=== PATIENT | female | born 1940 | race Caucasian/White ===

== ENCOUNTER 2016-11-22 20:59 | Emergency (ER) | payer MEDICARE, BC ==
[~2016-11-22] VITALS: Ht 144.8 cm; Wt 85.0 kg
[~2016-11-22 20:59] MED LIST: ACCU40TA10 PO; AMLO5TAB22 PO; CYCL-36 PO; D31000TA PO; DILA100C PO; LIDO5T TOP; LIPI40TA PO; MAGN250T13 PO; METO50TA PO; NEUR600T PO; TAB-TAB PO
[2016-11-22 21:03] VITALS: BP 184/95; PULSE 84; RESP 16; TEMP 98.8; O2SAT 95
[2016-11-22 21:58] VITALS: TEMP 100
[2016-11-22] MEDS ORDERED: ACETAMINOPHEN 325 MG TAB PO ONE (22:00)
[2016-11-22] MEDS ORDERED: SODIUM CHLORID 0.9% 500 ML INJ 500 ML IV ONE (22:00)
--- NOTE | 2016-11-22 22:03 | PD ---
HPI Chief Complaint: Headache Time Seen by Provider: 21:50 Travel History International Travel<30 days: No Contact w/Intl Traveler<30days: No Traveled to known affect area: No History of Present Illness HPI This is a 76-year-old female with history of symptomatic bradycardia with pacemaker implant, diabetes, hypertension, hyperlipidemia. She presents for evaluation of chills. Symptoms started this evening. She feels that she cannot get warm. She did not check her temperature at home. She also endorses a cough, dry, which started today as well as nasal congestion. She endorses diarrhea which started today as well. She's had approximately 5 episodes of nonbloody diarrhea throughout the day. She reports that earlier in the day she was having some lower abdominal pain which has since resolved. She denies any chest pain or shortness of breath, nausea or vomiting, flank pain, rash, stiff neck, joint swelling. She denies any dietary changes. She denies any recent antibiotic use. She has no other complaints at this time. PFSH Past Medical History Hx Anticoagulant Therapy: Yes (XARELTO) Arthritis: Yes Asthma: Yes Blood Disorders: No Anxiety: No Depression: No Heart Rhythm Problems: Yes (BRADYCARDIA PACEMAKER BIOTRONIC) Cancer: No Cardiovascular Problems: Yes (PACEMAKER) High Cholesterol: Yes Chemotherapy: No Chest Pain: No Congestive Heart Failure: No COPD: No Cerebrovascular Accident: No Coronary Artery Disease: Yes Diabetes: Yes (METFORMIN) Diminished Hearing: No Endocrine: Yes Gastrointestinal Disorders: No GERD: Yes Genitourinary: Yes Headaches: No Hypertension: Yes Immune Disorder: No Musculoskeletal: Yes (OSTEOARTHRITIS) Neurologic: Yes Psychiatric: No Reproductive: No Respiratory: No Immunizations Current: No Migraines: No Myocardial Infarction: No Seizures: Yes Sleep Apnea: No Menopausal: Yes : 4 Para: 4 Tubal Ligation: Yes Past Surgical History Abdominal Surgery: No AICD: Yes Body Medical Devices: PACEMAKER/DEFIB Cardiac Surgery: Yes (PACEMAKER) Section: Yes Ear Surgery: No Endocrine Surgery: No Eye Surgery: No Genitourinary Surgery: No Gynecologic Surgery: No Hysterectomy: No Neurologic Surgery: No Oral Surgery: No Pacemaker: Yes Thoracic Surgery: No Other Surgery: Yes (pacemaker) Family History Family Hypercholesterolemia: Yes Social History Alcohol Use: No Tobacco Use: No Substance Use: No Allergies-Medications (Allergen,Severity, Reaction): Coded Allergies: Codeine (Verified Adverse Reaction, Severe, Nausea, 1/20/17) Reported Meds & Prescriptions Reported Meds & Active Scripts Active Flexeril (Cyclobenzaprine HCl) 10 Mg Tab 5 Mg PO TID PRN Lidoderm Patch 5% (Lidocaine HCl) 1 Patch Patch 1 Patch TOP DAILY 7 Days Apply patch to the most painful area. Patch(es) may remain in place for up to 12 hours in any 24 hour period. Reported D3 (Cholecalciferol) 1,000 Unit Tab 1,000 Unit PO DAILY Magnesium 250 Mg Tab 250 Mg PO DAILY Amlodipine Besylate 5 mg (Amlodipine Besylate) 5 Mg Tab 5 Mg PO DAILY Metoprolol Tartrate 50 mg (Metoprolol Tartrate) 50 Mg Tab 50 Mg PO BID Lipitor (Atorvastatin Calcium) 40 Mg Tab 80 Mg PO HS Multivitamin (Multivitamins) 1 Tab Tab 1 Tab PO DAILY Accupril 40 mg (Quinapril HCl) 40 Mg Tab 40 Mg PO BID Dilantin Kapseals (Phenytoin Sodium) 100 Mg Cap 100 Mg PO TID Neurontin (Gabapentin) 600 Mg Tab 600 Mg PO TID Review of Systems Except as stated in HPI: all other systems reviewed are Neg Physical Exam Narrative GENERAL: Well-developed well-nourished female in no acute distress SKIN: Warm and dry. HEAD: Atraumatic. Normocephalic. EYES: Pupils equal and round. No scleral icterus. No injection or drainage. ENT: No nasal bleeding or discharge. Mucous membranes pink and moist. NECK: Trachea midline. No JVD. No lymphadenopathy. Neck Supple full range of motion. CARDIOVASCULAR: Regular rate and rhythm. No murmur appreciated. RESPIRATORY: No accessory muscle use. Clear to auscultation. Breath sounds equal bilaterally. GASTROINTESTINAL: Abdomen soft, non-tender, nondistended. Hepatic and splenic margins not palpable. No guarding. MUSCULOSKELETAL: No obvious deformities. NEUROLOGICAL: Awake and alert. No obvious cranial nerve deficits. Motor grossly within normal limits. Normal speech. Data Data Last Documented VS Vital Signs Date Time Temp Pulse Resp B/P Pulse Ox O2 Delivery O2 Flow Rate FiO2 11/22/16 23:53 98.6 80 16 174/82 96 Room Air Orders Complete Blood Count With Diff (11/22/16 21:58) Comprehensive Metabolic Panel (11/22/16 21:58) Lactic Acid Sepsis Protocol (11/22/16 21:58) Lipase (11/22/16 21:58) Urinalysis - C+S If Indicated (11/22/16 21:58) Influenzae A/B Antigen (11/22/16 21:58) Blood Culture (11/22/16 21:58) Chest, Single Ap (11/22/16 21:58) Iv Access Insert/Monitor (11/22/16 21:58) Acetaminophen (Tylenol) (11/22/16 22:00) Sodium Chlorid 0.9% 500 Ml Inj (Ns 500 M (11/22/16 22:00) Sodium Chlorid 0.9% 500 Ml Inj (Ns 500 M (11/23/16 00:00) Sodium Chlor 0.9% 1000 Ml Inj (Ns 1000 M (11/23/16 00:00) Labs Laboratory Tests Test 11/22/16 11/22/16 11/22/16 11/23/16 22:05 22:10 22:35 00:16 White Blood Count 8.2 TH/MM3 Red Blood Count 3.33 MIL/MM3 Hemoglobin 11.7 GM/DL Hematocrit 33.4 % Mean Corpuscular Volume 100.2 FL Mean Corpuscular Hemoglobin 35.1 PG Mean Corpuscular Hemoglobin 35.0 % Concent Red Cell Distribution Width 12.4 % Platelet Count 240 TH/MM3 Mean Platelet Volume 8.8 FL Neutrophils (%) (Auto) 79.5 % Lymphocytes (%) (Auto) 8.3 % Monocytes (%) (Auto) 8.2 % Eosinophils (%) (Auto) 3.5 % Basophils (%) (Auto) 0.5 % Neutrophils # (Auto) 6.5 TH/MM3 Lymphocytes # (Auto) 0.7 TH/MM3 Monocytes # (Auto) 0.7 TH/MM3 Eosinophils # (Auto) 0.3 TH/MM3 Basophils # (Auto) 0.0 TH/MM3 CBC Comment DIFF FINAL Differential Comment Sodium Level 139 MEQ/L Potassium Level 4.3 MEQ/L Chloride Level 102 MEQ/L Carbon Dioxide Level 28.2 MEQ/L Anion Gap 9 MEQ/L Blood Urea Nitrogen 14 MG/DL Creatinine 1.46 MG/DL Estimat Glomerular Filtration 35 ML/MIN Rate Random Glucose 227 MG/DL Calcium Level 8.9 MG/DL Total Bilirubin 0.2 MG/DL Aspartate Amino Transf 37 U/L (AST/SGOT) Alanine Aminotransferase 43 U/L (ALT/SGPT) Alkaline Phosphatase 153 U/L Total Protein 7.6 GM/DL Albumin 3.8 GM/DL Lipase 128 U/L Lactic Acid Level 2.3 mmol/L 1.6 mmol/L Urine Color YELLOW Urine Turbidity CLEAR Urine pH 7.5 Urine Specific [place] 1.013 Urine Protein TRACE mg/dL Urine Glucose (UA) NEG mg/dL Urine Ketones NEG mg/dL Urine Occult Blood NEG Urine Nitrite NEG Urine Bilirubin NEG Urine Urobilinogen LESS THAN 2.0 MG/DL Urine Leukocyte Esterase SMALL Urine RBC 1 /hpf Urine WBC 2 /hpf Urine Squamous Epithelial <1 /hpf Cells Microscopic Urinalysis Comment CATH-CULT NOT IND MDM Medical Decision Making Medical Screen Exam Complete: Yes Emergency Medical Condition: Yes Medical Record Reviewed: Yes Interpretation(s) CBC WBC 8.2, 79% neutrophils, hemoglobin 11.7 CMP creatinine 1.46, random glucose 227 Lactic acid 2.3 Urinalysis small leukocytes otherwise unremarkable Chest x-ray no infiltrate, mild cardiomegaly Influenza antigen negative Differential Diagnosis Influenza, pneumonia, bronchitis, sinusitis, sepsis, dehydration, gastroenteritis, UTI, diverticulitis, colitis, appendicitis, C. difficile Narrative Course This is a 76-year-old female who has been having chills for several hours. She has also had a cough throughout the day as well as watery diarrhea. She reports that earlier this afternoon she was having some lower abdominal pain but that has resolved. Denies recent antibiotic use. Physical examination is reassuring. She has a normal temperature orally, axillary temperature was 100.0 Fahrenheit. Her abdomen is soft and nontender. Her lungs sound clear. Plan is for basic lab work, chest x-ray, influenza antigen. The patient will be provided IV fluids and Tylenol. Blood cultures have been received. 0020: Upon reexamination the patient feels improved with the administration of Tylenol. Her chills have resolved and she feels normal. She has had no diarrhea during her hospital stay so stool cultures were not performed. Her previous abdominal pain has not returned and dry abdomen is soft and nontender and so CT imaging of the abdomen was not performed. Her initial lab work is reassuring. Her lactic acid was elevated at 2.3. The patient was given 1 L fluid bolus and 125 mL normal saline per hour. She has no leukocytosis. Chest x-ray reveals no pneumonia. Influenza antigen is negative. I suspect gastroenteritis, likely viral, as the etiology. The patient appears quite well and she would prefer to go home. She is encouraged to follow-up closely with her primary care physician as her symptoms may evolve over time but at this point in time I am not seeing any indication for antibiotic use or admission. She was encouraged to return for any new or worsening symptoms. Repeat lactic acid is 1.6. She is stable for discharge. Diagnosis Primary Impression: Gastroenteritis Additional Impression: Cough Additional Instructions: Stay well-hydrated and well-nourished, get plenty of rest. Take Tylenol for fever per dosing instructions on the bottle. Follow-up with primary care physician in the next few days. Return for any new or worsening symptoms. Med/Other Pt SpecificInfo: No Change to Meds Disposition: 01 DISCHARGE HOME Condition: Stable Damian Ureña Nov 22, 2016 22:03
--- NOTE | 2016-11-22 22:33 | RADRPT ---
EXAM DATE/TIME: 11/22/2016 22:11 [facility] COMPARISON: No previous studies available for comparison. INDICATIONS : Short of Breath, Cough. MEDICAL HISTORY : Hypercholesterolemia. Hypertension. Gastroesophageal reflux disease. Seizures. Coronary artery disea se. Asthma. Arthritis. Diabetes. UTI. SURGICAL HISTORY : Pacemaker. section. Tubal ligation. ENCOUNTER: Initial ACUITY: 1 day PAIN SCORE: 0/10 LOCATION: Bilateral chest FINDINGS: A single view of the chest demonstrates the lungs to be symmetrically aerated without evidence of mas s, infiltrate or effusion. Pacer leads overlie right atrium and right ventricle. Mild cardiomegaly. CONCLUSION: 1. No focal infiltrate. Pacer leads overlying right atrium and right ventricle. Mild cardiomegaly. Gus Fulton MD on November 22, 2016 at 22:31 Board Certified Radiologist. This report was verified electronically.
[2016-11-22 22:36] LABS: AUTOMATED NEUTROPHIL # 6.5 TH/MM3 (1.8-7.7); BASOPHIL % 0.5 % (0.0-2.0); EOSINOPHIL # 0.3 TH/MM3 (0-0.4); EOSINOPHIL % 3.5 % (0.0-4.0); HEMATOCRIT 33.4 % (35.0-46.0); HEMO FLAGS DIFF FINAL; LYMPH % 8.3 % (9.0-44.0); LYMPHOCYTE # 0.7 TH/MM3 (1.0-4.8); MEAN CELL VOLUME 100.2 FL (80.0-100.0); MEAN CORPUSCULAR HEMOGLOBIN 35.1 PG (27.0-34.0); MONO % 8.2 % (0.0-8.0); NEUT % 79.5 % (16.0-70.0); PLATELET COUNT 240 TH/MM3 (150-450); RED BLOOD COUNT 3.33 MIL/MM3 (4.00-5.30); RED CELL DISTRIBUTION WIDTH 12.4 % (11.6-17.2); WHITE BLOOD COUNT 8.2 TH/MM3 (4.0-11.0)
[2016-11-22 22:53] LABS: BLOOD, URINE NEG (NEG); GLUCOSE,URINE NEG (NEG); KETONE, URINE NEG (NEG); NITRITE,URINE NEG (NEG); PH, URINE 7.5 (5.0-8.5); SQUAMOUS EPITHELIAL CELL URINE <1 /hpf (0-5); URINE COLOR YELLOW (YELLW/STRAW)
[2016-11-22 22:56] LABS: COMMENT (UR) CATH-CULT NOT IND; CULTURE IF INDICATED CATH CULTURE NOT IND
[2016-11-22 22:57] LABS: ANION GAP 9 MEQ/L (5-15); AST (GOT) 37 U/L (15-37); BICARBONATE 28.2 MEQ/L (21.0-32.0); BLOOD UREA NITROGEN 14 MG/DL (7-18); CHLORIDE 102 MEQ/L (98-107); GLOMERULAR FILTRATION RATE 35 ML/MIN (>89); POTASSIUM 4.3 MEQ/L (3.5-5.1); SODIUM (NA) 139 MEQ/L (136-145)
[2016-11-22 23:00] LABS: ALKALINE PHOSPHATASE 153 U/L (45-117); ALT (GPT) 43 U/L (10-53); TOTAL BILIRUBIN ADULT 0.2 MG/DL (0.2-1.0)
[2016-11-22 23:53] VITALS: BP 174/82; PULSE 80; RESP 16; TEMP 98.6; O2SAT 96
[2016-11-23] MEDS ORDERED: SODIUM CHLOR 0.9% 1000 ML INJ 1,000 ML IV SCH
[2016-11-23] MEDS ORDERED: SODIUM CHLORID 0.9% 500 ML INJ 500 ML IV ONE
[2016-11-23 00:24] LABS: LACTIC ACID GHOST NOT REPORTABLE
[2016-11-24] MEDS ORDERED: ATOR40TA16 PO (15:37)
[2016-11-24] MEDS ORDERED: VITA10003 PO (15:37)
[2016-11-24] MEDS ORDERED: XARE20TA PO (15:37)
[2016-11-24] MEDS ORDERED: MAGN500T2 PO (15:37)
[2016-11-24] MEDS ORDERED: FISHCAP4 PO (15:37)
[2016-11-24] MEDS ORDERED: GABA300C5 PO (15:37)
[2016-11-24] MEDS ORDERED: TYLE325T PO (15:37)
[2016-11-24] MEDS ORDERED: METO50TA PO (15:37)
[2016-11-24] MEDS ORDERED: AMLO5TAB2 PO (15:37)
[2016-11-24] MEDS ORDERED: LISI-515 PO (15:37)
[2016-11-24] MEDS ORDERED: MULT-207 PO (15:37)
[2016-11-24] MEDS ORDERED: VISICAP PO (15:37)
[2016-11-24] MEDS ORDERED: METF500T PO (15:37)
[2016-11-24] MEDS ORDERED: ASPI81CH CHEW (15:37)
[2016-11-24] MEDS ORDERED: FOLI800T PO (15:37)
[2016-11-24] MEDS ORDERED: PHEN100C PO (15:37)
[2016-11-24] MEDS ORDERED: TRAM50TA PO (15:37)
[2016-11-24] MEDS ORDERED: LEVA750T PO (19:45)
[2016-11-24] MEDS ORDERED: METR-1 PO (19:45)
[2016-11-24] MEDS ORDERED: ZOFR4TAB3 SL (19:45)
== END 2016-11-23 01:29 | disposition home or self-care (01) ==
LOC: NEPB 20:59
DX: K52.9 Noninfective gastroenteritis and colitis, unspecified (principal); R51 Headache; E78.00 Pure hypercholesterolemia, unspecified; I10 Essential (primary) hypertension; E11.9 Type 2 diabetes mellitus without complications; Z95.0 Presence of cardiac pacemaker; Z79.01 Long term (current) use of anticoagulants
CPT/HCPCS: 71010; 80053; 81001; 83605; 83690; 85025; 87040; 87804; 96360; 96361; 99285; J7030; J7040

== ENCOUNTER 2016-11-24 13:33 | Inpatient (IN) | payer MEDICARE, BC ==
[~2016-11-24] VITALS: Ht 147.3 cm; Wt 85.0 kg
[2016-11-24 13:37] VITALS: BP 137/65; PULSE 75; RESP 16; TEMP 101.8; O2SAT 95
[2016-11-24] MEDS ORDERED: SODIUM CHLOR 0.9% 1000 ML INJ 1,000 ML IV SCH (13:57)
--- NOTE | 2016-11-24 13:57 | PD ---
HPI Chief Complaint: GI Complaint Time Seen by Provider: 13:51 Travel History International Travel<30 days: No Contact w/Intl Traveler<30days: No Traveled to known affect area: No History of Present Illness HPI 76-year-old female seen in the ambulance [facility], with complaints of fever, nausea, vomiting, and diarrhea. Patient was recently seen here 2 days ago with similar complaints and discharged home with diagnosis of gastroenteritis. Patient states she has gotten worse since that time. Patient states symptoms of vertigo and weakness this morning, and a fever 102. Patient denies chest pain, shortness of breath, or upper respiratory symptoms. Patient denies urinary symptoms at this time. Patient states watery diarrhea now for 1 week. Patient is allergic to codeine. PFSH Past Medical History Hx Anticoagulant Therapy: Yes (XARELTO) Arthritis: Yes Asthma: Yes Blood Disorders: No Anxiety: No Depression: No Heart Rhythm Problems: Yes (BRADYCARDIA PACEMAKER BIOTRONIC) Cancer: No Cardiovascular Problems: Yes (PACEMAKER) High Cholesterol: Yes Chemotherapy: No Chest Pain: No Congestive Heart Failure: No COPD: No Cerebrovascular Accident: No Coronary Artery Disease: Yes Diabetes: Yes (METFORMIN) Diminished Hearing: No Endocrine: Yes Gastrointestinal Disorders: No GERD: Yes Genitourinary: Yes Headaches: No Hypertension: Yes Immune Disorder: No Musculoskeletal: Yes (OSTEOARTHRITIS) Neurologic: Yes Psychiatric: No Reproductive: No Respiratory: Yes Immunizations Current: No Migraines: No Myocardial Infarction: No Seizures: Yes Sleep Apnea: No Menopausal: Yes : 4 Para: 4 Tubal Ligation: Yes Past Surgical History Abdominal Surgery: No AICD: Yes Body Medical Devices: PACEMAKER/DEFIB Cardiac Surgery: Yes (PACEMAKER) Section: Yes Ear Surgery: No Endocrine Surgery: No Eye Surgery: No Genitourinary Surgery: No Gynecologic Surgery: No Hysterectomy: No Neurologic Surgery: No Oral Surgery: No Pacemaker: Yes Thoracic Surgery: No Other Surgery: Yes (pacemaker) Family History Family Hypercholesterolemia: Yes Social History Alcohol Use: No Tobacco Use: No Substance Use: No Allergies-Medications (Allergen,Severity, Reaction): Coded Allergies: Codeine (Verified Adverse Reaction, Severe, Nausea, 11/24/16) Reported Meds & Prescriptions Reported Meds & Active Scripts Active Flexeril (Cyclobenzaprine HCl) 10 Mg Tab 5 Mg PO TID PRN Lidoderm Patch 5% (Lidocaine HCl) 1 Patch Patch 1 Patch TOP DAILY 7 Days Apply patch to the most painful area. Patch(es) may remain in place for up to 12 hours in any 24 hour period. Reported D3 (Cholecalciferol) 1,000 Unit Tab 1,000 Unit PO DAILY Magnesium 250 Mg Tab 250 Mg PO DAILY Amlodipine Besylate 5 mg (Amlodipine Besylate) 5 Mg Tab 5 Mg PO DAILY Metoprolol Tartrate 50 mg (Metoprolol Tartrate) 50 Mg Tab 50 Mg PO BID Lipitor (Atorvastatin Calcium) 40 Mg Tab 80 Mg PO HS Multivitamin (Multivitamins) 1 Tab Tab 1 Tab PO DAILY Accupril 40 mg (Quinapril HCl) 40 Mg Tab 40 Mg PO BID Dilantin Kapseals (Phenytoin Sodium) 100 Mg Cap 100 Mg PO TID Neurontin (Gabapentin) 600 Mg Tab 600 Mg PO TID Review of Systems Except as stated in HPI: all other systems reviewed are Neg General / Constitutional: Positive: Fever (see history present illness) Eyes: No: Visual changes HENT: Positive: Vertigo, Lightheadedness, No: Headaches, Sore Throat, Rhinitis , Rhinorrhea, Congestion, Nosebleed, Neck Stiffness, Neck Pain, Ear Discharge, Earache Cardiovascular: No: Chest Pain or Discomfort Respiratory: No: Cough, Shortness of Breath, Wheezing Gastrointestinal: Positive: Nausea, Vomiting, Diarrhea, Abdominal Pain (mildly diffuse.), Loss of Appetite, No: Constipation Genitourinary: Positive: Decreased Urinary Output, No: Urgency, Frequency, Dysuria Musculoskeletal: No: Pain Skin: No Rash Neurologic: No: Weakness Psychiatric: No: Depression Endocrine: No: Polydipsia Hematologic/Lymphatic: No: Easy Bruising Physical Exam Narrative GENERAL: Patient appears in no acute distress. SKIN: Warm and dry. Mild to moderate pallor. Poor turgor with tenting present. HEAD: Atraumatic. Normocephalic. EYES: Pupils equal and round. No scleral icterus. No injection or drainage. ENT: No nasal bleeding or discharge. Mucous membranes pink and somewhat dry. Pharynx is unremarkable. Airway is patent. NECK: Trachea midline. No JVD. CARDIOVASCULAR: Regular rate and rhythm. No murmurs appreciated at this time. RESPIRATORY: No accessory muscle use. Mild diffuse wheezes to auscultation. Breath sounds equal bilaterally. GASTROINTESTINAL: Abdomen soft, mildly diffusely tender throughout, nondistended. Hepatic and splenic margins not palpable. No CVA tenderness. MUSCULOSKELETAL: Extremities without clubbing, cyanosis, or edema. No obvious deformities. NEUROLOGICAL: Awake and alert. No obvious cranial nerve deficits. Motor grossly within normal limits. Five out of 5 muscle strength in the arms and legs. Normal speech. PSYCHIATRIC: Appropriate mood and affect; insight and judgment normal. Data Data Last Documented VS Vital Signs Date Time Temp Pulse Resp B/P Pulse Ox O2 Delivery O2 Flow Rate FiO2 11/24/16 13:37 101.8 75 16 137/65 95 Orders Complete Blood Count With Diff (11/24/16 13:57) Comprehensive Metabolic Panel (11/24/16 13:57) Lipase (11/24/16 13:57) Lactic Acid (11/24/16 13:57) Prothrombin Time / Inr (Pt) (11/24/16 13:57) Act Partial Throm Time (Ptt) (11/24/16 13:57) Urinalysis - C+S If Indicated (11/24/16 13:57) Iv Access Insert/Monitor (11/24/16 13:57) Ecg Monitoring (11/24/16 13:57) Oximetry (11/24/16 13:57) NPO (11/24/16 13:57) Ondansetron Inj (Zofran Inj) (11/24/16 14:00) Sodium Chlor 0.9% 1000 Ml Inj (Ns 1000 M (11/24/16 13:57) Sodium Chloride 0.9% Flush (Ns Flush) (11/24/16 14:00) Electrocardiogram (11/24/16 13:57) Influenzae A/B Antigen (11/24/16 13:57) Chest, Single Ap (11/24/16 13:57) Acetaminophen (Tylenol) (11/24/16 14:15) B-Type Natriuretic Peptide (11/24/16 14:49) Ckmb (Isoenzyme) Profile (11/24/16 14:49) Magnesium (Mg) (11/24/16 14:49) Act Partial Throm Time (Ptt) (11/24/16 14:49) Troponin I (11/24/16 14:49) Bilateral Bp Monitoring (11/24/16 14:49) Oxygen Administration (11/24/16 14:49) Sodium Chloride 0.9% Flush (Ns Flush) (11/24/16 15:00) Labs Laboratory Tests Test 11/24/16 14:35 White Blood Count 7.7 TH/MM3 Red Blood Count 3.08 MIL/MM3 Hemoglobin 10.5 GM/DL Hematocrit 31.6 % Mean Corpuscular Volume 102.5 FL Mean Corpuscular Hemoglobin 34.1 PG Mean Corpuscular Hemoglobin 33.3 % Concent Red Cell Distribution Width 12.7 % Platelet Count 187 TH/MM3 Mean Platelet Volume 8.7 FL Neutrophils (%) (Auto) 80.3 % Lymphocytes (%) (Auto) 8.0 % Monocytes (%) (Auto) 10.0 % Eosinophils (%) (Auto) 1.4 % Basophils (%) (Auto) 0.3 % Neutrophils # (Auto) 6.2 TH/MM3 Lymphocytes # (Auto) 0.6 TH/MM3 Monocytes # (Auto) 0.8 TH/MM3 Eosinophils # (Auto) 0.1 TH/MM3 Basophils # (Auto) 0.0 TH/MM3 CBC Comment DIFF FINAL Differential Comment Prothrombin Time 11.0 SEC Prothromb Time International 1.0 RATIO Ratio Activated Partial 27.9 SEC Thromboplast Time MDM Medical Decision Making Medical Screen Exam Complete: Yes Emergency Medical Condition: Yes Differential Diagnosis Nausea and vomiting. Diarrhea. Dehydration. Electrolyte imbalance. Weakness. Wheezing. Narrative Course Patient is medically stable at time of exam. Labs are ordered including CBC, CMP, lactic acid, lipase, PT PTT and INR, and urinalysis. Influenza is ordered. IV access is obtained patient is given 4 mg Zofran IV as well as 1000 mL normal saline bolus. Patient is given 650 mg Tylenol by mouth. EKG is ordered. Chest x-ray shows possible pulmonary edema. Cardiac panel is added including BNP. Patient is awaiting medical bed placement. Call was placed to Dr. José who will be seeing the patient in [facility], and the patient was discussed. Dr. José assumes care of the patient at 1515 hrs. Condition: Stable [place] Nov 24, 2016 13:56
[2016-11-24] MEDS ORDERED: ONDANSETRON HCL 4 MG/2 ML VIAL IVP ONE (14:00)
[2016-11-24] MEDS ORDERED: SODIUM CHLORIDE 0.9% FLUSH 5 ML FLUSH IVF PRN ×2 (14:00→15:00)
[2016-11-24] MEDS ORDERED: ACETAMINOPHEN 325 MG TAB PO ONE (14:15)
--- NOTE | 2016-11-24 14:40 | RADRPT ---
EXAM DATE/TIME: 11/24/2016 14:09 [facility] COMPARISON: CHEST SINGLE AP, November 22, 2016, 22:11. INDICATIONS : Cough, Short of Breath. MEDICAL HISTORY : Hypercholesterolemia. Hypertension. Gastroesophageal reflux disease. Seizures. Coronary artery diseas e. Asthma. Arthritis. Diabetes. UTI. SURGICAL HISTORY : Pacemaker. section. Tubal ligation. ENCOUNTER: Initial ACUITY: 1 week PAIN SCORE: 0/10 LOCATION: Bilateral chest FINDINGS: AP view of the chest demonstrates a normal-sized cardiac silhouette. There are perihilar interstitial changes bilaterally. No consolidation or pneumothorax is seen. There is no effusion seen. Pacing dev ice remains present. CONCLUSION: Perihilar interstitial changes could represent pulmonary edema in the appropriate clinical setting. Db Vallejo MD on November 24, 2016 at 14:38 Board Certified Radiologist. This report was verified electronically.
[2016-11-24 14:58] LABS: AUTOMATED NEUTROPHIL # 6.2 TH/MM3 (1.8-7.7); BASOPHIL % 0.3 % (0.0-2.0); EOSINOPHIL # 0.1 TH/MM3 (0-0.4); EOSINOPHIL % 1.4 % (0.0-4.0); HEMATOCRIT 31.6 % (35.0-46.0); HEMO FLAGS DIFF FINAL; LYMPHOCYTE # 0.6 TH/MM3 (1.0-4.8); MEAN CELL VOLUME 102.5 FL (80.0-100.0); MEAN CORPUSCULAR HEMOGLOBIN 34.1 PG (27.0-34.0); MEAN CORPUSCULAR HGB CONC 33.3 % (32.0-36.0); NEUT % 80.3 % (16.0-70.0); PLATELET COUNT 187 TH/MM3 (150-450); RED BLOOD COUNT 3.08 MIL/MM3 (4.00-5.30); RED CELL DISTRIBUTION WIDTH 12.7 % (11.6-17.2); WHITE BLOOD COUNT 7.7 TH/MM3 (4.0-11.0)
[2016-11-24 15:07] LABS: APTT (PATIENT) 27.9 SEC (24.3-30.1)
[2016-11-24 15:23] LABS: ALT (GPT) 47 U/L (10-53); ANION GAP 7 MEQ/L (5-15); AST (GOT) 47 U/L (15-37); BICARBONATE 24.4 MEQ/L (21.0-32.0); BLOOD UREA NITROGEN 14 MG/DL (7-18); CHLORIDE 104 MEQ/L (98-107); POTASSIUM 4.1 MEQ/L (3.5-5.1); SODIUM (NA) 135 MEQ/L (136-145)
[2016-11-24 15:24] VITALS: BP_SYST 134; BP_SYST 166; BP_DIAS 67; BP_DIAS 73; PULSE 89; RESP 24; O2SAT 95; O2SAT 97
[2016-11-24 15:26] LABS: ALKALINE PHOSPHATASE 125 U/L (45-117); GLOMERULAR FILTRATION RATE 46 ML/MIN (>89); TOTAL BILIRUBIN ADULT 0.3 MG/DL (0.2-1.0)
[2016-11-24] MEDS ORDERED: METF500T PO (15:37)
[2016-11-24] MEDS ORDERED: VISICAP PO (15:37)
[2016-11-24] MEDS ORDERED: ATOR40TA16 PO (15:37)
[2016-11-24] MEDS ORDERED: FOLI800T PO (15:37)
[2016-11-24] MEDS ORDERED: FISHCAP4 PO (15:37)
[2016-11-24] MEDS ORDERED: PHEN100C PO (15:37)
[2016-11-24] MEDS ORDERED: TYLE325T PO (15:37)
[2016-11-24] MEDS ORDERED: ASPI81CH CHEW (15:37)
[2016-11-24] MEDS ORDERED: XARE20TA PO (15:37)
[2016-11-24] MEDS ORDERED: LISI-515 PO (15:37)
[2016-11-24] MEDS ORDERED: TRAM50TA PO (15:37)
[2016-11-24] MEDS ORDERED: MAGN500T2 PO (15:37)
[2016-11-24] MEDS ORDERED: VITA10003 PO (15:37)
[2016-11-24] MEDS ORDERED: AMLO5TAB2 PO (15:37)
[2016-11-24] MEDS ORDERED: GABA300C5 PO (15:37)
[2016-11-24] MEDS ORDERED: METO50TA PO (15:37)
[2016-11-24] MEDS ORDERED: MULT-207 PO (15:37)
[2016-11-24 15:38] VITALS: BP 166/73; PULSE 75; RESP 22; TEMP 100.3; O2SAT 95
[2016-11-24 15:40] LABS: BLOOD, URINE NEG (NEG); COMMENT (UR) CULT NOT INDICATED; CULTURE IF INDICATED CULT NOT INDICATED; GLUCOSE,URINE NEG (NEG); KETONE, URINE NEG (NEG); MUCUS URINE FEW /lpf (OCC); NITRITE,URINE NEG (NEG); URINE COLOR YELLOW (YELLW/STRAW)
[2016-11-24 16:35] LABS: APTT (PATIENT) 30.5 SEC (24.3-30.1)
--- NOTE | 2016-11-24 16:35 | PD ---
Data Data Last Documented VS Vital Signs Date Time Temp Pulse Resp B/P Pulse Ox O2 Delivery O2 Flow Rate FiO2 11/24/16 15:38 100.3 75 22 166/73 95 Nasal Cannula 3 Orders Complete Blood Count With Diff (11/24/16 13:57) Comprehensive Metabolic Panel (11/24/16 13:57) Lipase (11/24/16 13:57) Lactic Acid (11/24/16 13:57) Prothrombin Time / Inr (Pt) (11/24/16 13:57) Act Partial Throm Time (Ptt) (11/24/16 13:57) Urinalysis - C+S If Indicated (11/24/16 13:57) Iv Access Insert/Monitor (11/24/16 13:57) Ecg Monitoring (11/24/16 13:57) Oximetry (11/24/16 13:57) NPO (11/24/16 13:57) Ondansetron Inj (Zofran Inj) (11/24/16 14:00) Sodium Chlor 0.9% 1000 Ml Inj (Ns 1000 M (11/24/16 13:57) Sodium Chloride 0.9% Flush (Ns Flush) (11/24/16 14:00) Electrocardiogram (11/24/16 13:57) Influenzae A/B Antigen (11/24/16 13:57) Chest, Single Ap (11/24/16 13:57) Acetaminophen (Tylenol) (11/24/16 14:15) B-Type Natriuretic Peptide (11/24/16 14:49) Ckmb (Isoenzyme) Profile (11/24/16 14:49) Magnesium (Mg) (11/24/16 14:49) Act Partial Throm Time (Ptt) (11/24/16 14:49) Troponin I (11/24/16 14:49) Bilateral Bp Monitoring (11/24/16 14:49) Oxygen Administration (11/24/16 14:49) Sodium Chloride 0.9% Flush (Ns Flush) (11/24/16 15:00) Ct Abd/Pel W Iv Contrast(Rout) (11/24/16 ) Iohexol 350 Inj (Omnipaque 350 Inj) (11/24/16 17:05) Resp Home Oxygen Walk Test (11/24/16 ) Levofloxacin (Levaquin) (11/24/16 20:00) Admit Order (Ed Use Only) (11/24/16 ) Labs Laboratory Tests Test 11/24/16 11/24/16 11/24/16 14:35 14:40 15:56 White Blood Count 7.7 TH/MM3 Red Blood Count 3.08 MIL/MM3 Hemoglobin 10.5 GM/DL Hematocrit 31.6 % Mean Corpuscular Volume 102.5 FL Mean Corpuscular Hemoglobin 34.1 PG Mean Corpuscular Hemoglobin 33.3 % Concent Red Cell Distribution Width 12.7 % Platelet Count 187 TH/MM3 Mean Platelet Volume 8.7 FL Neutrophils (%) (Auto) 80.3 % Lymphocytes (%) (Auto) 8.0 % Monocytes (%) (Auto) 10.0 % Eosinophils (%) (Auto) 1.4 % Basophils (%) (Auto) 0.3 % Neutrophils # (Auto) 6.2 TH/MM3 Lymphocytes # (Auto) 0.6 TH/MM3 Monocytes # (Auto) 0.8 TH/MM3 Eosinophils # (Auto) 0.1 TH/MM3 Basophils # (Auto) 0.0 TH/MM3 CBC Comment DIFF FINAL Differential Comment Prothrombin Time 11.0 SEC Prothromb Time International 1.0 RATIO Ratio Activated Partial 27.9 SEC 30.5 SEC Thromboplast Time Sodium Level 135 MEQ/L Potassium Level 4.1 MEQ/L Chloride Level 104 MEQ/L Carbon Dioxide Level 24.4 MEQ/L Anion Gap 7 MEQ/L Blood Urea Nitrogen 14 MG/DL Creatinine 1.14 MG/DL Estimat Glomerular Filtration 46 ML/MIN Rate Random Glucose 119 MG/DL Lactic Acid Level 1.1 mmol/L Calcium Level 8.6 MG/DL Total Bilirubin 0.3 MG/DL Aspartate Amino Transf 47 U/L (AST/SGOT) Alanine Aminotransferase 47 U/L (ALT/SGPT) Alkaline Phosphatase 125 U/L Total Protein 6.4 GM/DL Albumin 3.2 GM/DL Lipase 120 U/L Urine Color YELLOW Urine Turbidity CLEAR Urine pH 6.0 Urine Specific [place] 1.008 Urine Protein 30 mg/dL Urine Glucose (UA) NEG mg/dL Urine Ketones NEG mg/dL Urine Occult Blood NEG Urine Nitrite NEG Urine Bilirubin NEG Urine Urobilinogen LESS THAN 2.0 MG/DL Urine Leukocyte Esterase TRACE Urine WBC 5 /hpf Urine Mucus FEW /lpf Microscopic Urinalysis Comment CULT NOT INDICATED Magnesium Level 1.5 MG/DL Total Creatine Kinase 74 U/L Troponin I LESS THAN 0.02 NG/ML B-Type Natriuretic Peptide 556 PG/ML [facility] Supervised Visit with TANIKA: Yes Narrative Course Patient care assumed for Josiah Houston patient is a 76-year-old female presents with nausea as well as vomiting for the past week or so. Patient states one of her close family contacts is been sick with very similar symptoms as well. Patient saw she has had the flu but is wondering why hasn't passed it. Patient was here yesterday and had blood work which was reassuring. As as she is returned second time today and given her age we'll pursue a CAT scan of her abdomen pelvis to rule out diverticulitis as well as other possible causes of her nausea. Patient's chest x-ray does show perihilar pneumonia, CT scan does show some bibasilar pneumonia. Patient is doing better in the emergency department she states that she wants to go home. Discussed with her that at her age I would request that she does walking oximetry test prior to discharge. Mr. roca comes to evaluate her and patient had just ambulated to the bathroom and back on her home and desaturated to 88%. Patient was then discussed with Dr. Martinez for admission. She was given Levaquin by mouth as initially she wanted to be discharged. With her hypoxia she will qualify for full admit. Diagnosis Primary Impression: Pneumonia Qualified Code: J18.9 - Pneumonia of both lungs due to infectious organism, unspecified part of lung Additional Impression: Gastroenteritis Admitting Information Admitting Physician Requests: Admit Med/Other Pt SpecificInfo: Prescription(s) given Scripts Ondansetron Odt (Zofran Odt)4 Mg Tab4 Mg SL Q6HR PRN (Nausea/Vomiting) #30 TAB Ref 0 Prov:James José MD 11/24/16 Metronidazole (Flagyl)500 Mg Pig365 Mg PO BID 7 Days Ref 0 Prov:James José MD 11/24/16 Levofloxacin (Levaquin)750 Mg Qmo412 Mg PO DAILY 7 Days Ref 0 Prov:James José MD 11/24/16 Condition: Stable James José MD Nov 24, 2016 16:35
[2016-11-24 16:40] LABS: MAGNESIUM 1.5 MG/DL (1.5-2.5)
[2016-11-24 16:46] LABS: CREATINE KINASE 74 U/L (26-192)
[2016-11-24] MEDS ORDERED: IOHEXOL 350 MG/ML 10 ML VIAL (for RAD DIAG) IV ONE (17:05)
--- NOTE | 2016-11-24 17:40 | RADRPT ---
EXAM DATE/TIME: 11/24/2016 16:58 [facility] COMPARISON: No previous studies available for comparison. INDICATIONS : Abdominal pain with nausea and vomiting. IV CONTRAST: 100 cc Omnipaque 350 (iohexol) IV ORAL CONTRAST: No oral contrast ingested. RADIATION DOSE: 15.81 CTDIvol (mGy) MEDICAL HISTORY : Cardiovascular disease. Diabetic. SURGICAL HISTORY : Pacemaker. ENCOUNTER: Initial ACUITY: 1 day PAIN SCALE: 5/10 LOCATION: Bilateral abdomen. TECHNIQUE: Volumetric scanning of the abdomen and pelvis was performed. Using automated exposure control and ad justment of the mA and/or kV according to patient size, radiation dose was kept as low as reasonably achievable to obtain optimal diagnostic quality images. FINDINGS: The bowel does not appear distended. There is a hernia seen in the right lower quadrant lateral to t he rectus muscle containing a short segment of small bowel. The small bowel in this area does appear narrowed. There are diverticula seen in the sigmoid colon without inflammatory change. There is a mild hiatal hernia present. The liver, spleen, pancreas, adrenal glands and kidneys are unremarkable . There is some atherosclerotic calcification seen at the aorta. No aneurysm is present. The pelvi c structures appear grossly intact. The patient has patchy areas of increased parenchymal density seen at the posterior lung bases bilate rally being more prominent on the left. The patient has a pacing device in place. There is degenera tive change in the lumbar spine. No focal bone lesions are seen. CONCLUSION: 1. Hernia seen at the right lateral lower abdominal wall containing a short segment of small bowel. The small bowel is narrowed. However, there does not appear to be distention of other areas of the bowel. 2. Colonic diverticula. 3. Mild hiatal hernia. 4. Suspected consolidation at the lung bases being worse on the left. Db Schmidt MD on November 24, 2016 at 17:21 Board Certified Radiologist. This report was verified electronically.
[2016-11-24] MEDS ORDERED: METR-1 PO (19:45)
[2016-11-24] MEDS ORDERED: ZOFR4TAB3 SL (19:45)
[2016-11-24] MEDS ORDERED: LEVA750T PO (19:45)
[2016-11-24] MEDS ORDERED: LEVOFLOXACIN 750 MG TAB PO ONE (20:00)
--- NOTE | 2016-11-24 20:10 | HHI.HP ---
HPI [facility] Primary Care Physician Yajaira Torres M.D. Admission Diagnosis PNA, Hypoxic resp failure. Diagnoses: (1) PNA (pneumonia) Diagnosis: Principal (2) Gastroenteritis Diagnosis: Principal (3) DM (diabetes mellitus) Diagnosis: Principal (4) HTN (hypertension) Diagnosis: Principal Travel History International Travel<30 Days: No Contact w/Intl Traveler <30 Da: No Traveled to Known Affected Are: No History of Present Illness This is a 76-year-old female with a PMH of HTN, DM, CAD and Pacemaker came to the ER with complaints of nausea, vomiting and diarrhea in addition to fever. Was seen in ER on 11/22/16 for similar symptoms, diagnosed w/ Gastroenteritis and discharged home. Returns to ER today w/ ongoing nausea, vomiting and diarrhea. On arrival, BP 137/65, HR 175, O2 sat 95% on RA, Temp 101.8. WBC normal, elevated neutrophil count. Creatinine 1.14, previously 1.46 on . U/a negative. CXR w/ perihilar interstitial changes, possibly pulmonary edema. CT Abd/Pelvis w/ hernia, no distention, suspected consolidation of bilateral lung bases, worse on left. S/p Levaquin in ER. While in ER, pt w/ ambulating O2 sat 88% on RA, currently 96% on 2L NC. Review of Systems Other ROS: 14 point review of systems otherwise negative. Past Family Social History Past Medical History PMH: HTN, DM, CAD and Pacemaker Past Surgical History PAST SURGICAL HISTORY: Pacemaker/AICD, Allergies: Coded Allergies: Codeine (Verified Adverse Reaction, Severe, Nausea, 11/24/16) Family History PAST FAMILY HISTORY: Reviewed, positive for DM and CAD. Social History PAST SOCIAL HISTORY: Negative for alcohol, tobacco or drugs. Physical Exam Vital Signs Vital Signs Date Time Temp Pulse Resp B/P Pulse Ox O2 Delivery O2 Flow Rate FiO2 11/24/16 15:38 100.3 75 22 166/73 95 Nasal Cannula 3 11/24/16 15:24 89 24 134/67 97 166/73 11/24/16 15:24 95 Nasal Cannula 3 11/24/16 15:24 95 Nasal Cannula 3 11/24/16 13:37 101.8 75 16 137/65 95 Physical Exam PE: GENERAL: Pleasant elderly white female in no acute distress, appears to feel unwell. HEENT: PERRLA, EOMI. No scleral icterus or conjunctival pallor. No lid lag or facial droop. CARDIOVASCULAR: Regular rate and rhythm. No obvious murmurs to auscultation. No chest tenderness to palpation. RESPIRATORY: No obvious rhonchi. Occasional wheezing. Clear to auscultation. Breath sounds equal bilaterally. GASTROINTESTINAL: Abdomen soft, mild epigastric tenderness to palpation, nondistended. BS normal. MUSCULOSKELETAL: Extremities without clubbing, cyanosis, or edema. No obvious deformities. NEUROLOGICAL: Awake, alert and oriented x4. No focal neurologic deficits. Moving both upper and lower extremities spontaneously. Laboratory Laboratory Tests Test 11/24/16 11/24/16 11/24/16 14:35 14:40 15:56 White Blood Count 7.7 Red Blood Count 3.08 Hemoglobin 10.5 Hematocrit 31.6 Mean Corpuscular Volume 102.5 Mean Corpuscular Hemoglobin 34.1 Mean Corpuscular Hemoglobin 33.3 Concent Red Cell Distribution Width 12.7 Platelet Count 187 Mean Platelet Volume 8.7 Neutrophils (%) (Auto) 80.3 Lymphocytes (%) (Auto) 8.0 Monocytes (%) (Auto) 10.0 Eosinophils (%) (Auto) 1.4 Basophils (%) (Auto) 0.3 Neutrophils # (Auto) 6.2 Lymphocytes # (Auto) 0.6 Monocytes # (Auto) 0.8 Eosinophils # (Auto) 0.1 Basophils # (Auto) 0.0 CBC Comment DIFF FINAL Differential Comment Prothrombin Time 11.0 Prothromb Time International 1.0 Ratio Activated Partial 27.9 30.5 Thromboplast Time Sodium Level 135 Potassium Level 4.1 Chloride Level 104 Carbon Dioxide Level 24.4 Anion Gap 7 Blood Urea Nitrogen 14 Creatinine 1.14 Estimat Glomerular Filtration 46 Rate Random Glucose 119 Lactic Acid Level 1.1 Calcium Level 8.6 Total Bilirubin 0.3 Aspartate Amino Transf 47 (AST/SGOT) Alanine Aminotransferase 47 (ALT/SGPT) Alkaline Phosphatase 125 Total Protein 6.4 Albumin 3.2 Lipase 120 Urine Color YELLOW Urine Turbidity CLEAR Urine pH 6.0 Urine Specific [place] 1.008 Urine Protein 30 Urine Glucose (UA) NEG Urine Ketones NEG Urine Occult Blood NEG Urine Nitrite NEG Urine Bilirubin NEG Urine Urobilinogen LESS THAN 2.0 Urine Leukocyte Esterase TRACE Urine WBC 5 Urine Mucus FEW Microscopic Urinalysis Comment CULT NOT INDICATED Magnesium Level 1.5 Total Creatine Kinase 74 Troponin I LESS THAN 0.02 B-Type Natriuretic Peptide 556 Date/Time Procedure Status Source Growth 11/24/16 14:35 Influenza Types A,B Antigen (PRETTY) - Final Complete Nasal Washing NEGATIVE FOR FLU A AND B ANTIGEN.... Result Diagram: 11/24/16 1435 11/24/16 1435 Assessment and Plan Problem List: (1) PNA (pneumonia) ICD Code: J18.9 Status: Acute (2) Gastroenteritis ICD Code: K52.9 Status: Acute (3) HTN (hypertension) ICD Code: I10 Status: Acute (4) DM (diabetes mellitus) ICD Code: E11.9 Status: Chronic Assessment and Plan A/P: 1. PNA: cough, fever x3 days. CXR w/ perihilar changes, possibly edema. CT Abd/Pelvis w/ hernia, no abdominal distention, suspected consolidation at lung bases, left worse than right, images reviewed by me. S/p Levaquin in ER. Episode of hypoxia w/ O2 sat 88% on RA w/ ambulation. Continue w/ IV Abx, DuoNeb, Mucinex. 2. Gastroenteritis: Nausea, vomiting, diarrhea x2-[address] Abd/Pelvis as above. Protonix IV, IVF, diet as tolerated. 3. DM: Sliding scale w/ Accu-Cheks. Hold Metformin in light of renal insufficiency. 4. Renal Insufficiency: Chronic. Creatinine 1.14, previously 1.46 on . U/a negative, IVF, repeat labs in am. Hold Metformin as above. 5. HTN: BP 140-160's, resume home medications. Monitor BP. 6. DVT Prophylaxis: SCD/Teds. 7. Social work for d/c planning as needed. 8. Case discussed w/ ER physician at length. Physician Certification 2 Midnight Certification Type: Admission for Inpatient Services Order for Inpatient Services The services are ordered in accordance with Medicare regulations or non- Medicare payer requirements, as applicable. In the case of services not specified as inpatient-only, they are appropriately provided as inpatient services in accordance with the 2-midnight benchmark. Estimated LOS (days): 2 days is the estimated time the patient will need to remain in the hospital, assuming treatment plan goals are met and no additional complications. Post-Hospital Plan: Not yet determined Pamela Malone MD Nov 24, 2016 20:10
[2016-11-24 20:12] VITALS: BP 146/67; PULSE 90; RESP 17; O2SAT 96
[2016-11-24] MEDS ORDERED: SODIUM CHLOR 0.9% 1000 ML INJ 1,000 ML IV ONE (20:15)
[2016-11-24] MEDS ORDERED: MORPHINE SULFATE 4 MG/ML INJ IV PRN ×2 (20:15)
[2016-11-24] MEDS ORDERED: GLUCAGON 1 MG/ML VIAL OTHER PRN (20:15)
[2016-11-24] MEDS ORDERED: SODIUM CHLORIDE 0.9% FLUSH 5 ML FLUSH FLUSH PRN (20:15)
[2016-11-24] MEDS ORDERED: DEXTROSE 50% IN WATER 50 ML VIAL(D50) IV PUSH PRN (20:15)
[2016-11-24] MEDS ORDERED: ACETAMINOPHEN 325 MG TAB PO PRN (20:15)
[2016-11-24] MEDS ORDERED: RESP: ALBUTEROL 2.5 MG/IPRATROPIUM 0.5 MG NEB (PRN) NEB (20:15)
[2016-11-24] MEDS ORDERED: BISACODYL 10 MG SUPP PR PRN (20:15)
[2016-11-24] MEDS ORDERED: ONDANSETRON HCL 4 MG/2 ML VIAL IVP PRN (20:15)
[2016-11-24 20:45] VITALS: TEMP 99.6
[2016-11-24] MEDS: SODIUM CHLORIDE 0.9% FLUSH 5 ML FLUSH FLUSH SCH (20:52)
[2016-11-24] MEDS: INSULIN ASPART SUPPLEMENTAL SCALE SQ SCH (21:00)
[2016-11-24] MEDS: PANTOPRAZOLE SODIUM 40 MG VIAL IV PUSH SCH (21:28)
[2016-11-24] MEDS: guaiFENesin E.R. 600 MG TAB PO SCH (21:28)
[2016-11-24] MEDS: METOPROLOL TARTRATE 50 MG TAB PO SCH (21:29)
[2016-11-24] MEDS: ATORVASTATIN 40 MG TAB PO SCH (21:29)
[2016-11-24] MEDS: BUDESONIDE-FORMOTEROL 160/4.5 MCG INHALER INH SCH (21:29)
[2016-11-24] MEDS: amLODIPine BESYLATE 5 MG TAB PO SCH (21:29)
[2016-11-24 22:22] VITALS: BP 133/67; PULSE 74; RESP 20; TEMP 98.1; O2SAT 96
[2016-11-25] VITALS (8 sets, daily range): BP systolic 111–139; BP diastolic 56–68; PULSE 76–87; RESP 18–20; TEMP 98–98.7; O2SAT 94–98
[2016-11-25 05:13] LABS: AUTOMATED NEUTROPHIL # 4.4 TH/MM3 (1.8-7.7); BASOPHIL % 0.4 % (0.0-2.0); EOSINOPHIL # 0.1 TH/MM3 (0-0.4); EOSINOPHIL % 1.2 % (0.0-4.0); HEMO FLAGS DIFF FINAL; LYMPH % 19.7 % (9.0-44.0); LYMPHOCYTE # 1.3 TH/MM3 (1.0-4.8); MEAN CELL VOLUME 100.7 FL (80.0-100.0); MEAN CORPUSCULAR HEMOGLOBIN 34.3 PG (27.0-34.0); MEAN CORPUSCULAR HGB CONC 34.1 % (32.0-36.0); MONO % 11.7 % (0.0-8.0); PLATELET COUNT 167 TH/MM3 (150-450); RED BLOOD COUNT 2.88 MIL/MM3 (4.00-5.30); RED CELL DISTRIBUTION WIDTH 12.7 % (11.6-17.2); WHITE BLOOD COUNT 6.5 TH/MM3 (4.0-11.0)
[2016-11-25 05:44] LABS: ALKALINE PHOSPHATASE 108 U/L (45-117); ALT (GPT) 38 U/L (10-53); ANION GAP 11 MEQ/L (5-15); AST (GOT) 32 U/L (15-37); BICARBONATE 23.4 MEQ/L (21.0-32.0); BLOOD UREA NITROGEN 14 MG/DL (7-18); CHLORIDE 105 MEQ/L (98-107); GLOMERULAR FILTRATION RATE 40 ML/MIN (>89); POTASSIUM 3.8 MEQ/L (3.5-5.1); SODIUM (NA) 139 MEQ/L (136-145); TOTAL BILIRUBIN ADULT 0.3 MG/DL (0.2-1.0)
[2016-11-25] MEDS: INSULIN ASPART SUPPLEMENTAL SCALE SQ SCH ×4 (06:30→21:00)
--- NOTE | 2016-11-25 07:38 | HHI.PR ---
Subjective Remarks Denies chest pain. Says she had stomach discomfort in the morning. N n/v/d/c. Says she did have diarrhea 3 days ago and she was not able to eat much SOB is improving .Says she feels very weak and is not sure iof she can get out of bed. Says she doesn't have O2 at home. Objective Vitals Vital Signs Date Time Temp Pulse Resp B/P Pulse Ox O2 Delivery O2 Flow Rate FiO2 11/25/16 05:11 98.0 76 20 139/68 96 11/25/16 01:07 98.1 76 20 111/60 97 11/24/16 22:22 98.1 74 20 133/67 96 11/24/16 20:45 99.6 11/24/16 20:12 90 17 146/67 96 Nasal Cannula 2 11/24/16 15:38 100.3 75 22 166/73 95 Nasal Cannula 3 11/24/16 15:24 89 24 134/67 97 166/73 11/24/16 15:24 95 Nasal Cannula 3 11/24/16 15:24 95 Nasal Cannula 3 11/24/16 13:37 101.8 75 16 137/65 95 I/O 11/24/16 11/24/16 11/24/16 11/25/16 11/25/16 11/25/16 07:00 15:00 23:00 07:00 15:00 23:00 Intake Total 472 ml Balance 472 ml Intake IV Total 472 ml Result Diagram: 11/25/16 0440 11/25/16 0440 Imaging Last Impressions Chest X-Ray 11/24/16 1357 Signed Impressions: Service Date/Time: Thursday, November 24, 2016 14:09 - CONCLUSION: Perihilar interstitial changes could represent pulmonary edema in the appropriate clinical setting. Db Vallejo MD Abdomen/Pelvis CT 11/24/16 0000 Signed Impressions: Service Date/Time: Thursday, November 24, 2016 16:58 - CONCLUSION: 1. Hernia seen at the right lateral lower abdominal wall containing a short segment of small bowel. The small bowel is narrowed. However, there does not appear to be distention of other areas of the bowel. 2. Colonic diverticula. 3. Mild hiatal hernia. 4. Suspected consolidation at the lung bases being worse on the left. Db Schmidt MD Objective Remarks GENERAL: Pleasant elderly white female in no acute distress, appears to feel unwell. HEENT: PERRLA, EOMI. No scleral icterus or conjunctival pallor. No lid lag or facial droop. CARDIOVASCULAR: Regular rate and rhythm. No obvious murmurs to auscultation. No chest tenderness to palpation. RESPIRATORY: No obvious rhonchi. Occasional wheezing. Clear to auscultation. Breath sounds equal bilaterally. GASTROINTESTINAL: Abdomen soft, mild epigastric tenderness to palpation, nondistended. BS normal. MUSCULOSKELETAL: Extremities without clubbing, cyanosis, or edema. No obvious deformities. NEUROLOGICAL: Awake, alert and oriented x4. No focal neurologic deficits. Moving both upper and lower extremities spontaneously. A/P Problem List: (1) PNA (pneumonia) ICD Code: J18.9 Status: Acute (2) Gastroenteritis ICD Code: K52.9 Status: Acute (3) HTN (hypertension) ICD Code: I10 Status: Acute (4) DM (diabetes mellitus) ICD Code: E11.9 Status: Chronic Assessment and Plan PNA: cough, fever x3 days [employer]. Acute respiratory failure requiring O2. Episode of hypoxia w/ O2 sat 88% on RA w / ambulation. CXR with perihilar changes, possibly edema. CT Abd/Pelvis w/ hernia, no abdominal distention, suspected consolidation at lung bases, left worse than right, images reviewed by me. Continue w/ IV Abx levaquin, DuoNeb, Mucinex. Gastroenteritis: Nausea, vomiting, diarrhea x2-[address] Abd/Pelvis as above. Protonix IV, IVF, diet as tolerated. DM2, uncontrolled A1c 7/2 (12/19). Sliding scale w/ Accu-Cheks. Hold Metformin in light of renal insufficiency. Renal Insufficiency: Chronic. Creatinine 1.14, previously 1.46 on 11/22/16. U/ a negative, IVF, repeat labs in am. Hold Metformin as above. HTN: BP 140-160's, resume home medications. Monitor BP. DVT Prophylaxis: SCD/Teds. Social work for d/c planning as needed. Discussed with the patient, nurse Glenda Wagoner MD Nov 25, 2016 07:38
[2016-11-25] MEDS: RESP: ALBUTEROL 2.5 MG/IPRATROPIUM 0.5 MG NEB (SCH) NEB ×4 (08:00→20:54)
[2016-11-25] MEDS: RIVAROXABAN 20 MG TAB PO SCH (08:06)
[2016-11-25] MEDS: PHENYTOIN SODIUM 100 MG CAP PO SCH ×3 (08:07→18:18)
[2016-11-25] MEDS: METOPROLOL TARTRATE 50 MG TAB PO SCH ×2 (08:07→21:15)
[2016-11-25] MEDS: ASPIRIN 81 MG CHEW TAB CHEW SCH (08:07)
[2016-11-25] MEDS: MULTIVITAMIN TAB PO SCH (08:07)
[2016-11-25] MEDS: guaiFENesin E.R. 600 MG TAB PO SCH ×2 (08:07→21:16)
[2016-11-25] MEDS: GABAPENTIN 300 MG CAP PO SCH ×3 (08:07→18:18)
[2016-11-25] MEDS: amLODIPine BESYLATE 5 MG TAB PO SCH ×2 (08:07→21:16)
[2016-11-25] MEDS: BUDESONIDE-FORMOTEROL 160/4.5 MCG INHALER INH SCH ×2 (08:08→21:14)
[2016-11-25] MEDS: SODIUM CHLORIDE 0.9% FLUSH 5 ML FLUSH FLUSH SCH ×2 (08:09→21:14)
[2016-11-25] MEDS: PANTOPRAZOLE SODIUM 40 MG VIAL IV PUSH SCH ×2 (08:09→21:15)
[2016-11-25 12:32] LABS: FERRITIN 134 NG/ML (8-252); TRANSFERRIN IRON PROFILE 170 MG/DL (200-360)
--- NOTE | 2016-11-25 17:06 | EKG ---
Date Performed: 11/24/2016 Time Performed: 14:17:19 PTAGE: 76 years EKG: ELECTRONIC ATRIAL PACEMAKER ELECTRONIC VENTRICULAR PACEMAKER ABNORMAL RHYTHM ECG INTERPRETA TION BASED ON A DEFAULT AGE OF 40 YEARS Compared to prior tracing no significant change PREVIOUS TRACING : 12/20/2015 02.59 DOCTOR: Godfrey Calix Interpretating Date/Time 11/25/2016 17:03:34
[2016-11-25] MEDS: ATORVASTATIN 40 MG TAB PO SCH (21:16)
[2016-11-26 00:46] VITALS: BP 112/56; PULSE 64; RESP 18; TEMP 98; O2SAT 97
[2016-11-26 04:08] VITALS: BP 134/74; PULSE 67; RESP 18; TEMP 98; O2SAT 97
[2016-11-26] MEDS: INSULIN ASPART SUPPLEMENTAL SCALE SQ SCH ×2 (06:41→11:00)
[2016-11-26 07:26] VITALS: BP 146/64; PULSE 81; RESP 18; TEMP 98; O2SAT 96
[2016-11-26 07:35] LABS: AUTOMATED NEUTROPHIL # 4.3 TH/MM3 (1.8-7.7); BASOPHIL % 0.3 % (0.0-2.0); EOSINOPHIL # 0.1 TH/MM3 (0-0.4); EOSINOPHIL % 2.2 % (0.0-4.0); HEMATOCRIT 29.4 % (35.0-46.0); HEMO FLAGS DIFF FINAL; LYMPH % 19.4 % (9.0-44.0); LYMPHOCYTE # 1.2 TH/MM3 (1.0-4.8); MEAN CELL VOLUME 100.8 FL (80.0-100.0); MEAN CORPUSCULAR HEMOGLOBIN 34.3 PG (27.0-34.0); MONO % 11.2 % (0.0-8.0); NEUT % 66.9 % (16.0-70.0); PLATELET COUNT 188 TH/MM3 (150-450); RED BLOOD COUNT 2.91 MIL/MM3 (4.00-5.30); RED CELL DISTRIBUTION WIDTH 12.8 % (11.6-17.2); WHITE BLOOD COUNT 6.4 TH/MM3 (4.0-11.0)
[2016-11-26 08:00] VITALS: PULSE 67; PULSE 79
[2016-11-26 08:05] LABS: BICARBONATE 23.6 MEQ/L (21.0-32.0); MAGNESIUM 1.7 MG/DL (1.5-2.5); POTASSIUM 4.2 MEQ/L (3.5-5.1)
[2016-11-26] MEDS: BUDESONIDE-FORMOTEROL 160/4.5 MCG INHALER INH SCH (08:30)
[2016-11-26] MEDS: SODIUM CHLORIDE 0.9% FLUSH 5 ML FLUSH FLUSH SCH (08:30)
[2016-11-26] MEDS: PANTOPRAZOLE SODIUM 40 MG VIAL IV PUSH SCH (08:30)
[2016-11-26] MEDS: ASPIRIN 81 MG CHEW TAB CHEW SCH (08:31)
[2016-11-26] MEDS: METOPROLOL TARTRATE 50 MG TAB PO SCH (08:31)
[2016-11-26] MEDS: guaiFENesin E.R. 600 MG TAB PO SCH (08:31)
[2016-11-26] MEDS: RIVAROXABAN 20 MG TAB PO SCH (08:32)
[2016-11-26] MEDS: GABAPENTIN 300 MG CAP PO SCH (08:32)
[2016-11-26] MEDS: PHENYTOIN SODIUM 100 MG CAP PO SCH (08:32)
[2016-11-26] MEDS: amLODIPine BESYLATE 5 MG TAB PO SCH (08:32)
[2016-11-26] MEDS: MULTIVITAMIN TAB PO SCH (08:36)
[2016-11-26] MEDS ORDERED: GETGO ROLLING W1 MI1 (09:21)
--- NOTE | 2016-11-26 09:22 | HHI.FF ---
Face to Face Verification Diagnosis: (1) PNA (pneumonia) (2) Gastroenteritis (3) Cough (4) HTN (hypertension) (5) GERD (gastroesophageal reflux disease) (6) DM (diabetes mellitus) (7) Hyperlipidemia (8) Paroxysmal a-fib (9) Chronic back pain (10) Valvular heart disease (11) Pacemaker (12) Obesity Physical Therapy Order: Evaluate and Treat, Improve ambulation, Strength and gait training Home Health Nursing Order: Medical education Signs/symptoms of disease process Nursing assessment with vital signs I have seen patient Briseyda Yarbrough on 11/26/16. My clinical findings support the need for the requested home health care services because: Ltd mobility - disease progression Patient has SOB Deconditioned w/ increased weakness Limited ability to care for self I certify that my clinical findings support that this patient is homebound because: Unsteady gait/balance Unsafe to leave home unassisted Unable to use public transportation Cielo Villanueva PA-C Nov 26, 2016 09:22 Glenda Wagoner MD Nov 26, 2016 12:53
[2016-11-26] MEDS ORDERED: PNEUMOCOCCAL POLYVALENT INJ 25 MCG/0.5 ML SYR IM ONE (10:00)
[2016-11-26] MEDS: RESP: ALBUTEROL 2.5 MG/IPRATROPIUM 0.5 MG NEB (SCH) NEB ×2 (10:08→11:16)
[2016-11-26 10:10] VITALS: O2SAT 98
--- NOTE | 2016-11-26 10:27 | HHI.PR ---
Subjective Remarks Follow up for pneumonia. The patient is seen sitting upright in bedside chair. She feels much better today. She states her breathing has improved, denies any shortness of breath, has an occasional cough. Her O2 sat has been stable on room air. No further nausea/vomiting, has been tolerating her meals. She is looking forward to going home. PT recommend HHC and walker, the patient does not have a walker at home. Objective Vitals Vital Signs Date Time Temp Pulse Resp B/P Pulse Ox O2 Delivery O2 Flow Rate FiO2 11/26/16 10:10 98 21 11/26/16 07:26 98.0 81 18 146/64 96 11/26/16 04:08 98.0 67 18 134/74 97 11/26/16 00:46 98.0 64 18 112/56 97 11/25/16 21:04 79 11/25/16 20:54 95 21 11/25/16 19:45 98.7 87 18 118/58 98 11/25/16 11:35 98.7 76 18 115/56 94 11/25/16 10:23 76 I/O 11/25/16 11/25/16 11/25/16 11/26/16 11/26/16 11/26/16 07:00 15:00 23:00 07:00 15:00 23:00 Intake Total 240 ml Balance 240 ml Intake Oral 240 ml # Voids 2 Result Diagram: 11/26/16 0626 11/26/16 0626 Imaging Last Impressions Chest X-Ray 11/24/16 1357 Signed Impressions: Service Date/Time: Thursday, November 24, 2016 14:09 - CONCLUSION: Perihilar interstitial changes could represent pulmonary edema in the appropriate clinical setting. Db Vallejo MD Abdomen/Pelvis CT 11/24/16 0000 Signed Impressions: Service Date/Time: Thursday, November 24, 2016 16:58 - CONCLUSION: 1. Hernia seen at the right lateral lower abdominal wall containing a short segment of small bowel. The small bowel is narrowed. However, there does not appear to be distention of other areas of the bowel. 2. Colonic diverticula. 3. Mild hiatal hernia. 4. Suspected consolidation at the lung bases being worse on the left. Db Schmidt MD Objective Remarks GENERAL: Well-nourished, well-developed elderly female patient in NAD. SKIN: Warm and dry. No rash. HEAD: Normocephalic. Atraumatic. NECK: Supple. Trachea midline. CARDIOVASCULAR: Regular rate and rhythm. S1, S2 noted. No murmur appreciated. RESPIRATORY: No accessory muscle use. Clear to auscultation. Breath sounds equal bilaterally. GASTROINTESTINAL: Abdomen soft, non-tender, nondistended. Normoactive bowel sounds x4. MUSCULOSKELETAL: No obvious deformities. Extremities without clubbing, cyanosis , or edema. NEUROLOGICAL: Awake and alert. No obvious cranial nerve deficits. Motor grossly within normal limits. Normal speech. PSYCHIATRIC: Appropriate mood and affect; insight and judgment normal. Medications and IVs Current Medications Medications (Trade) Dose Ordered Sig/Marily Route Start Time Stop Time Status Last Admin (D50w (Vial) Inj) 25 ml UNSCH PRN IV PUSH 11/24/16 20:15 (Glucagon Inj) 1 mg UNSCH PRN OTHER 11/24/16 20:15 (Symbicort 160-4.5 Inh) 2 puff Q12HR INH 11/24/16 21:00 11/26/16 08:30 (Mucinex Er) 600 mg BID PO 11/24/16 21:00 11/26/16 08:31 (Protonix Inj) 40 mg Q12H IV PUSH 11/24/16 21:00 11/26/16 08:30 (NS Flush) 2 ml UNSCH PRN FLUSH 11/24/16 20:15 (NS Flush) 2 ml BID FLUSH 11/24/16 21:00 11/26/16 08:30 (Zofran Inj) 4 mg Q6H PRN IVP 11/24/16 20:15 (Dulcolax Supp) 10 mg DAILY PRN MI 11/24/16 20:15 (Tylenol) 650 mg Q6H PRN PO 11/24/16 20:15 (Morphine Inj) 1 mg Q3H PRN IV 11/24/16 20:15 (Morphine Inj) 2 mg Q3H PRN IV 11/24/16 20:15 (Norvasc) 5 mg BID PO 11/24/16 21:00 11/26/16 08:32 (Aspirin Chew) 81 mg DAILY CHEW 11/25/16 09:00 11/26/16 08:31 (Lipitor) 40 mg HS PO 11/24/16 21:00 11/25/16 21:16 (Neurontin) 300 mg TID PO 11/25/16 09:00 11/26/16 08:32 (Lopressor) 50 mg BID PO 11/24/16 21:00 11/26/16 08:31 (Theragran) 1 tab DAILY PO 11/25/16 09:00 11/26/16 08:36 (Dilantin) 100 mg TID PO 11/25/16 09:00 11/26/16 08:32 (Xarelto) 20 mg DAILY PO 11/25/16 09:00 11/26/16 08:32 Urinary Catheter: No Vascular Central Line Catheter: No A/P Problem List: (1) PNA (pneumonia) ICD Code: J18.9 Status: Acute (2) Gastroenteritis ICD Code: K52.9 Status: Acute (3) HTN (hypertension) ICD Code: I10 Status: Acute (4) DM (diabetes mellitus) ICD Code: E11.9 Status: Chronic Assessment and Plan 76-year-old female with: Community Acquired PNA: cough, fever x3 days. Acute respiratory failure requiring O2: Episode of hypoxia w/ O2 sat 88% on RA w / ambulation. CXR images reviewed by me, with perihilar changes, possibly edema. Continue w/ IV Abx levaquin, DuoNeb, Mucinex. Checked home O2 walk test, patient does not required O2 at discharge, has been stable on room air. Overall much improved. Gastroenteritis: Nausea, vomiting, diarrhea x2-[address] Abd/Pelvis w/ hernia , no abdominal distention, suspected consolidation at lung bases, left worse than right, images reviewed by me. Protonix IV, IVF, diet as tolerated. DM2, uncontrolled A1c 7/2 (12/19). Sliding scale w/ Accu-Cheks. Hold Metformin in light of renal insufficiency. Renal Insufficiency: Chronic. Creatinine 1.14, previously 1.46 on 11/22/16. U/ a negative, IVF, repeat labs in am. Hold Metformin as above. HTN: BP 140-160's, resume home medications. Monitor BP. Generalized Weakness: likely multifactorial secondary to advanced age, with acute infection as above. Consult PT, recommends HHC and walker, case management assisting. DVT Prophylaxis: SCD/Teds. Written by Cielo Villanueva, acting as scribe for Dr. Wagoner on 11/26/16 at 09:15. The documentation accurately reflects the work performed [id number] by me Dr. Wagoner on 11/26/16 at 09:15. Cielo Villanueva PA-C Nov 26, 2016 10:27 Glenda Wagoner MD Nov 26, 2016 12:52
[2016-11-26] MEDS ORDERED: WALKER WHEELS/F1 MIS (10:31)
--- NOTE | 2016-11-26 12:53 | HHI.DCPOC ---
Discharge Care Plan Goals to Promote Your Health * To prevent worsening of your condition and complications * To maintain your health at the optimal level Directions to Meet Your Goals Take your medications as prescribed Follow your dietary instruction Follow activity as directed Keep your appointments as scheduled Take your immunizations and boosters as scheduled If your symptoms worsen call your PCP, if no PCP go to Urgent Care Center or Emergency Room Smoking is Dangerous to Your Health. Avoid second hand smoke Call the 24-hour hour crisis hotline for domestic abuse at Glenda Wagoner MD Nov 26, 2016 12:53
== END 2016-11-26 13:08 | disposition home health service (06) | DRG 193 ==
LOC: NEPA 13:33 → NEDA 20:06 → NEPHCDU 22:06
PROVIDERS: ADMIT Hospitalist; ATTEND Hospitalist
DX: J18.9 Pneumonia, unspecified organism (principal); J96.01 Acute respiratory failure with hypoxia; E11.65 Type 2 diabetes mellitus with hyperglycemia; E11.22 Type 2 diabetes mellitus with diabetic chronic kidney disease; Z79.84 Long term (current) use of oral hypoglycemic drugs; K52.9 Noninfective gastroenteritis and colitis, unspecified; I25.10 Atherosclerotic heart disease of native coronary artery without angina pectoris; Z95.0 Presence of cardiac pacemaker; I12.9 Hypertensive chronic kidney disease with stage 1 through stage 4 chronic kidney disease, or unspecified chronic kidney disease; N18.9 Chronic kidney disease, unspecified; R53.1 Weakness; Z79.01 Long term (current) use of anticoagulants
CPT/HCPCS: 71010; 74177; 76937; 80048; 80053; 81001; 82550; 82728; 82948; 83540; 83550; 83605; 83690; 83735; 83880; 84484; 85025; 85610; 85730; 87040; 87804; 93005; 94620; 94640; 94664; 96360; 96361; 96374; C9113; G8987-GP; G8988-GP; J2405; J7030; J7040; Q9967

== ENCOUNTER 2017-06-27 06:20 | Emergency (ER) | payer MEDICARE, BC ==
[~2017-06-27] VITALS: Ht 147.3 cm; Wt 80.7 kg
[~2017-06-27 06:20] MED LIST changes: -ACCU40TA10 PO; +AMLO5TAB2 PO; -AMLO5TAB22 PO; +ASPI81CH CHEW; +ATOR40TA16 PO; -CYCL-36 PO; -D31000TA PO; -DILA100C PO; +FISHCAP4 PO; +FOLI800T PO; +GABA300C5 PO; +LEVA750T PO; -LIDO5T TOP; -LIPI40TA PO; +LISI-515 PO; -MAGN250T13 PO; +MAGN500T2 PO; +METF500T PO; +METR-1 PO; +MULT-207 PO; -NEUR600T PO; +PHEN100C PO; -TAB-TAB PO; +TRAM50TA PO; +TYLE325T PO; +VISICAP PO; +VITA10003 PO; +WALKER WHEELS/F1 MIS; +XARE20TA PO; +ZOFR4TAB3 SL
[2017-06-27 06:22] VITALS: BP 179/92; PULSE 92; RESP 16; TEMP 97.2; O2SAT 97
--- NOTE | 2017-06-27 07:06 | PD ---
HPI Chief Complaint: fall, neck pain Time Seen by Provider: 06:59 Travel History International Travel<30 days: No Contact w/Intl Traveler<30days: No History of Present Illness HPI 76-year-old female arrives complaining of left-sided neck pain with radiation into the trapezius distribution. She had a fall 5 days prior while stepping into her shower. She denies loss of consciousness/head trauma. The pain started yesterday evening preventing her from sleeping overnight. No numbness tingling weakness either upper extremity. She also complains of pain in the right shoulder and pain in the region of the right thigh where she landed onto the bathroom floor. PFSH Past Medical History Hx Anticoagulant Therapy: Yes (XARELTO) Arthritis: Yes Asthma: Yes Blood Disorders: No Anxiety: No Depression: No Heart Rhythm Problems: Yes (BRADYCARDIA PACEMAKER BIOTRONIC) Cancer: No Cardiovascular Problems: Yes (PACEMAKER) High Cholesterol: Yes Chemotherapy: No Chest Pain: No Congestive Heart Failure: No COPD: No Cerebrovascular Accident: No Coronary Artery Disease: Yes Diabetes: Yes (METFORMIN) Diminished Hearing: No Endocrine: Yes Gastrointestinal Disorders: No GERD: Yes Genitourinary: Yes Headaches: No Hypertension: Yes Immune Disorder: No Implanted Vascular Access Dvce: Yes Musculoskeletal: Yes (OSTEOARTHRITIS) Neurologic: Yes Psychiatric: No Reproductive: No Respiratory: Yes Immunizations Current: No Migraines: No Myocardial Infarction: No Seizures: Yes Sleep Apnea: No Menopausal: Yes : 4 Para: 4 Tubal Ligation: Yes Past Surgical History Abdominal Surgery: No AICD: Yes Body Medical Devices: PACEMAKER/DEFIB Cardiac Surgery: Yes (PACEMAKER) Section: Yes Ear Surgery: No Endocrine Surgery: No Eye Surgery: No Genitourinary Surgery: No Gynecologic Surgery: No Hysterectomy: No Neurologic Surgery: No Oral Surgery: No Pacemaker: Yes Thoracic Surgery: No Other Surgery: No (pacemaker) Family History Family Hypercholesterolemia: Yes Social History Alcohol Use: No Tobacco Use: No Substance Use: No Allergies-Medications (Allergen,Severity, Reaction): Coded Allergies: codeine (Unverified Adverse Reaction, Severe, Nausea, 06/27/17) Reported Meds & Prescriptions Reported Meds & Active Scripts Active Lortab (Hydrocodone-Acetaminophen) 5-325 Mg Tab 1-2 Tab PO Q6H PRN Reported Flexeril (Cyclobenzaprine HCl) 10 Mg Tab 10 Mg PO TID [place]-3 Fish Oil/Vitamin (Fish Oil-Cholecalciferol) 1,000-1,000 Mg Cap 1 Cap PO DAILY Vitamin D3 (Cholecalciferol) 2,000 Unit Cap 2,000 Units PO DAILY Calcium Ascorbate 500 Mg Tab 1,000 Mg PO DAILY Accupril (Quinapril HCl) 20 Mg Tab 20 Mg PO BID Eliquis (Apixaban) 5 Mg Tab 5 Mg PO BID Metoprolol Tartrate 50 Mg Tab 50 Mg PO BID Tramadol (Tramadol HCl) 50 Mg Tab 50 Mg PO Q4H PRN Amlodipine (Amlodipine Besylate) 5 Mg Tab 5 Mg PO BID Atorvastatin (Atorvastatin Calcium) 40 Mg Tab 40 Mg PO HS Gabapentin 300 Mg Cap 300 Mg PO TID Phenytoin Extended 100 Mg Cap 100 Mg PO TID Aspirin 81 Mg Chew 81 Mg CHEW DAILY Folic Acid 800 Mcg Tab 800 Mcg PO DAILY Magnesium Oxide 500 Mg Tab 500 Mg PO DAILY Review of Systems General / Constitutional: No: Fever Cardiovascular: No: Chest Pain or Discomfort, Dyspnea on exertion Respiratory: No: Shortness of Breath Neurologic: No: Weakness, Dizziness, Syncope, Coordination Problem, Ataxia, Headache, Change in Mentation, Paresthesia, Sensory Disturbance Physical Exam Narrative GENERAL: Well-nourished well-developed 76-year-old female pleasant SKIN: Warm and dry. HEAD: Normocephalic. EYES: No scleral icterus. No injection or drainage. NECK: Supple, trachea midline. No JVD or lymphadenopathy. Minimal tenderness along the lateral neck musculature with some extension into the region of the left trapezius. No focal spinal tenderness. MUSCULOSKELETAL: No cyanosis, or edema. Patient is ambulatory with a normal gait. BACK: Nontender without obvious deformity. No CVA tenderness. Data Data Last Documented VS Vital Signs Date Time Temp Pulse Resp B/P (MAP) Pulse Ox O2 Delivery O2 Flow Rate FiO2 06/27/17 08:55 06/27/17 07:26 16 06/27/17 06:22 97.2 92 97 Vital signs reviewed Orders Orders ^ Kinney Collar (06/27/17 07:04) Ct Cerv Spine W/O Contrast (06/27/17 07:04) Acetamin-Hydrocod 325-5 Mg ([place] 5-325 (06/27/17 07:15) MDM Medical Decision Making Medical Screen Exam Complete: Yes Emergency Medical Condition: Yes Medical Record Reviewed: Yes Differential Diagnosis torticollis, vertebral body injury, radiculopathic pain, contusion, muscle spasm Narrative Course Last 24 hours Impressions Cervical Spine CT 06/27/17 0704 Signed Impressions: Service Date/Time: Friday, June 27, 2017 07:25 - CONCLUSION: 1. No acute fracture or dislocation. 2. Mild multilevel degenerative spondylosis of the lower cervical spine. Guille Greer MD Chronic changes as anticipated observed on imaging. Pt's reiterates pain complaint. Son notes pt suffers with chronic MSK pain throughout spine. Return precautions discussed. Diagnosis Primary Impression: Fall Qualified Codes: W19.XXXA - Unspecified fall, initial encounter Additional Impression: Neck pain Referrals: Primary Care Physician 2 days Med/Other Pt SpecificInfo: Prescription(s) given Scripts Hydrocodone-Acetaminophen (Lortab) 5-325 Mg Tab 1-2 TAB PO Q6H Y for PAIN SCALE 6 TO 10, #10 TAB 0 Refills Prov: Abdon Beaulieu MD 06/27/17 Disposition: 01 DISCHARGE HOME Condition: Stable Abdon Beaulieu MD Jun 27, 2017 07:06
[2017-06-27] MEDS ORDERED: ACETAMINOPHEN/HYDROcodone 325 MG/5 MG TAB PO ONE (07:15)
[2017-06-27] MEDS ORDERED: CYCL1TAB29 PO (07:36)
[2017-06-27] MEDS ORDERED: APIX5TAB PO (07:36)
[2017-06-27] MEDS ORDERED: ACCU20TA3 PO (07:36)
[2017-06-27] MEDS ORDERED: CALC500T37 PO (07:36)
[2017-06-27] MEDS ORDERED: OMEGCAP PO (07:36)
[2017-06-27] MEDS ORDERED: VITA2000 PO (07:36)
--- NOTE | 2017-06-27 08:14 | RADRPT ---
EXAM DATE/TIME: 06/27/2017 07:25 [facility] COMPARISON: No previous studies available for comparison. INDICATIONS : Trauma. Fell a week ago. Left neck pain. RADIATION DOSE: 26.13 CTDIvol (mGy) MEDICAL HISTORY : Cardiovascular disease. Diabetes mellitus type 2. Gastroesophageal reflux disease.Seizures. Hyperten gianfranco. SURGICAL HISTORY : Tubal ligation. Pacemaker. ENCOUNTER: Initial ACUITY: 1 week PAIN SCALE: 9/10 LOCATION: Left neck TECHNIQUE: Volumetric scanning of the cervical spine was performed. Multiplanar reconstructions in the sagittal, coronal and oblique axial planes were performed. Using automated exposure control and adjustment o f the mA and/or kV according to patient size, radiation dose was kept as low as reasonably achievable to obtain optimal diagnostic quality images. DICOM format image data is available electronically f or review and comparison. FINDINGS: Vertebral body heights are maintained. Osseous structures are intact without evidence for acute bony fracture. Dens is intact. Sagittal alignment is maintained. There is a normal C1-2 relationship. Face ts are normally aligned. There is no significant prevertebral soft tissue hematoma. No significant ce rvical adenopathy or gross mass. Small subcentimeter nodule in the right thyroid lobe. Visualized raymond g apices are clear without pneumothorax. Mild degenerative spondylosis of the lower cervical spine wi th mild left multilevel facet arthropathy. CONCLUSION: 1. No acute fracture or dislocation. 2. Mild multilevel degenerative spondylosis of the lower cervical spine. Guille Greer MD on June 27, 2017 at 8:06 Board Certified Radiologist. This report was verified electronically.
[2017-06-27] MEDS ORDERED: HYDR-3533 PO (08:39)
== END 2017-06-27 08:57 | disposition home or self-care (01) ==
LOC: PHED 06:20
DX: M54.2 Cervicalgia (principal); W18.2XXA Fall in (into) shower or empty bathtub, initial encounter; Z79.01 Long term (current) use of anticoagulants; M19.90 Unspecified osteoarthritis, unspecified site; J45.909 Unspecified asthma, uncomplicated; R00.1 Bradycardia, unspecified; Z95.0 Presence of cardiac pacemaker; I25.10 Atherosclerotic heart disease of native coronary artery without angina pectoris; E11.9 Type 2 diabetes mellitus without complications; K21.9 Gastro-esophageal reflux disease without esophagitis; I10 Essential (primary) hypertension; Z79.84 Long term (current) use of oral hypoglycemic drugs
CPT/HCPCS: 72125; 99284

== ENCOUNTER 2017-09-15 16:23 | Emergency (ER) | payer MEDICARE, BC ==
[~2017-09-15] VITALS: Ht 147.3 cm; Wt 80.0 kg
[~2017-09-15 16:23] MED LIST changes: +ACCU20TA3 PO; +APIX5TAB PO; +ASPI-516 CHEW; -ASPI81CH CHEW; +CALC500T37 PO; +CYCL10TA PO; -FISHCAP4 PO; +HYDR-3533 PO; -LEVA750T PO; -LISI-515 PO; -METF500T PO; -METR-1 PO; -MULT-207 PO; +OMEGCAP PO; -TYLE325T PO; -VISICAP PO; -VITA10003 PO; +VITA2000 PO; -WALKER WHEELS/F1 MIS; -XARE20TA PO; -ZOFR4TAB3 SL
[2017-09-15 16:29] VITALS: BP 182/86; PULSE 96; RESP 16; TEMP 97.4; O2SAT 98
[2017-09-15] MEDS ORDERED: KETOROLAC TROMETHAMINE 60 MG/2 ML (IM) VIAL IM ONE (16:45)
[2017-09-15] MEDS ORDERED: ORPHENADRINE INJ 60 MG/2 ML AMP IM ONE (16:45)
--- NOTE | 2017-09-15 16:47 | PD ---
HPI Chief Complaint: Pain: Acute or Chronic Time Seen by Provider: 16:37 Travel History International Travel<30 days: No Contact w/Intl Traveler<30days: No Traveled to known affect area: No History of Present Illness HPI 77-year-old female here with left buttocks/hip pain which started this morning. Pain is worse when her leg is extended fully. It is an aching pain. She denies any injuries. Denies any weakness, abdominal pain, back pain. She has no other complaints at this time. PFSH Past Medical History Hx Anticoagulant Therapy: Yes (XARELTO) Arthritis: Yes Asthma: Yes Blood Disorders: No Anxiety: No Depression: No Heart Rhythm Problems: Yes (BRADYCARDIA PACEMAKER BIOTRONIC) Cancer: No Cardiovascular Problems: Yes (PACEMAKER) High Cholesterol: Yes Chemotherapy: No Chest Pain: No Congestive Heart Failure: No COPD: No Cerebrovascular Accident: No Coronary Artery Disease: Yes Diabetes: Yes (METFORMIN) Diminished Hearing: No Endocrine: Yes Gastrointestinal Disorders: No GERD: Yes Genitourinary: Yes Headaches: No Hypertension: Yes Immune Disorder: No Implanted Vascular Access Dvce: Yes Musculoskeletal: Yes (OSTEOARTHRITIS) Neurologic: Yes Psychiatric: No Reproductive: No Respiratory: Yes Immunizations Current: No Migraines: No Myocardial Infarction: No Seizures: Yes Sleep Apnea: No Menopausal: Yes : 4 Para: 4 Tubal Ligation: Yes Past Surgical History Abdominal Surgery: No AICD: Yes Body Medical Devices: PACEMAKER/DEFIB Cardiac Surgery: Yes (PACEMAKER) Section: Yes Ear Surgery: No Endocrine Surgery: No Eye Surgery: No Genitourinary Surgery: No Gynecologic Surgery: No Hysterectomy: No Neurologic Surgery: No Oral Surgery: No Pacemaker: Yes Thoracic Surgery: No Other Surgery: No (pacemaker) Family History Family Hypercholesterolemia: Yes Social History Alcohol Use: No Tobacco Use: No Substance Use: No Allergies-Medications (Allergen,Severity, Reaction): Coded Allergies: codeine (Verified Adverse Reaction, Severe, Nausea, 09/15/17) Reported Meds & Prescriptions Reported Meds & Active Scripts Active Baclofen 10 Mg Tab 10 Mg PO Q8HR 7 Days Naproxen 500 Mg Tab 500 Mg PO BID 7 Days Reported Allergy Tablets (Chlorpheniramine Maleate) 4 Mg Tab 4 Mg PO Q4H PRN [place]-3 Fish Oil/Vitamin (Fish Oil-Cholecalciferol) 1,000-1,000 Mg Cap 1 Cap PO DAILY Vitamin D3 (Cholecalciferol) 2,000 Unit Cap 2,000 Units PO DAILY Calcium Ascorbate 500 Mg Tab 1,000 Mg PO DAILY Accupril (Quinapril HCl) 20 Mg Tab 20 Mg PO BID Eliquis (Apixaban) 5 Mg Tab 5 Mg PO BID Metoprolol Tartrate 50 Mg Tab 50 Mg PO BID Tramadol (Tramadol HCl) 50 Mg Tab 50 Mg PO Q4H PRN Amlodipine (Amlodipine Besylate) 5 Mg Tab 5 Mg PO BID Atorvastatin (Atorvastatin Calcium) 40 Mg Tab 40 Mg PO HS Gabapentin 300 Mg Cap 300 Mg PO TID Phenytoin Extended 100 Mg Cap 100 Mg PO TID Aspirin 81 Mg Chew 81 Mg CHEW DAILY Folic Acid 800 Mcg Tab 800 Mcg PO DAILY Magnesium Oxide 500 Mg Tab 500 Mg PO DAILY Review of Systems Except as stated in HPI: all other systems reviewed are Neg Physical Exam Narrative GENERAL: Well-nourished female in no acute distress SKIN: Warm and dry. No rash no bruising or soft tissue swelling HEAD: Atraumatic. Normocephalic. EYES: Pupils equal and round. No scleral icterus. No injection or drainage. ENT: No nasal bleeding or discharge. Mucous membranes pink and moist. NECK: Trachea midline. No JVD. CARDIOVASCULAR: Regular rate and rhythm. No murmur appreciated. RESPIRATORY: No accessory muscle use. Clear to auscultation. Breath sounds equal bilaterally. GASTROINTESTINAL: Abdomen soft, non-tender, nondistended. Hepatic and splenic margins not palpable. MUSCULOSKELETAL: No obvious deformities. Focal tenderness to palpation to the left buttocks musculature. There is pain with full extension of the leg. She has 5 out of 5 muscle strength in lower extremities. Distal pulses are intact. There is no tenderness to palpation along the lumbar midline spine, no tenderness to palpation to the pelvic bones. NEUROLOGICAL: Awake and alert. No obvious cranial nerve deficits. Motor grossly within normal limits. Normal speech. Data Data Last Documented VS Vital Signs Date Time Temp Pulse Resp B/P (MAP) Pulse Ox O2 Delivery O2 Flow Rate FiO2 09/15/17 16:29 97.4 96 16 182/86 (118) 98 Orders Orders Hip, Uni(Ap&Lat) W Ap Pelvis (09/15/17 ) Ketorolac Inj (Toradol Inj) (09/15/17 16:45) Orphenadrine Inj (Norflex Inj) (09/15/17 16:45) Ed Discharge Order (09/15/17 17:35) [facility] Medical Decision Making Medical Screen Exam Complete: Yes Emergency Medical Condition: Yes Medical Record Reviewed: Yes Interpretation(s) FINDINGS: Degenerative changes are seen about both SI joints. Mild degenerative changes of both hips. Fracture is not appreciated. CONCLUSION: Bilateral degenerative SI joint erosions. Bilateral SI joint size are usually seen with rheumatoid disease and enteropathic arthritis. Differential Diagnosis Muscle strain, muscle spasm, piriformis syndrome, sciatica Narrative Course 77-year-old female here with left buttocks/hip pain for 1 day. Examination reveals pain that is worse with moving, specifically extension of the leg. Her pain seems muscular. X-ray imaging revealed no acute abnormalities, degenerative changes seen in both SI joints. The patient received Toradol and Norflex which helps some with her symptoms. She'll be discharged with a short course of naproxen, baclofen, outpatient follow-up with her primary care physician. Diagnosis Primary Impression: Left hip pain Additional Instructions: Medication as needed. Take naproxen with meals. Do not drive or drink alcohol when taking baclofen. Avoid strenuous activity, heavy lifting. Follow-up in 3- 4 days with primary care physician. Return for any emergent medical conditions. Med/Other Pt SpecificInfo: Prescription(s) given Scripts Baclofen (Baclofen) 10 Mg Tab 10 MG PO Q8HR for 7 Days, TAB 0 Refills Prov: Kisha Borja DO 09/15/17 Naproxen (Naproxen) 500 Mg Tab 500 MG PO BID for 7 Days, #14 TAB 0 Refills Prov: Kisha Borja DO 09/15/17 Disposition: 01 DISCHARGE HOME Condition: Stable Damian Ureña Sep 15, 2017 16:47
[2017-09-15] MEDS ORDERED: ALLE4TAB10 PO (16:49)
--- NOTE | 2017-09-15 17:14 | RADRPT ---
EXAM DATE/TIME: 09/15/2017 16:49 [facility] COMPARISON: No previous studies available for comparison. INDICATIONS : Left hip pain. MEDICAL HISTORY : None. SURGICAL HISTORY : None. ENCOUNTER: Initial ACUITY: 1 day PAIN SCORE: 6/10 LOCATION: Left hip FINDINGS: Degenerative changes are seen about both SI joints. Mild degenerative changes of both hips. Fractur e is not appreciated. CONCLUSION: Bilateral degenerative SI joint erosions. Bilateral SI joint size are usually seen w ith rheumatoid disease and enteropathic arthritis. Stanley Child MD FACR on September 15, 2017 at 17:10 Board Certified Radiologist. This report was verified electronically.
[2017-09-15] MEDS ORDERED: BACL10TA PO (17:35)
[2017-09-15] MEDS ORDERED: NAPR500T2 PO (17:35)
[2017-09-16] MEDS ORDERED: MACR100C2 PO (15:18)
== END 2017-09-15 17:48 | disposition home or self-care (01) ==
LOC: PHEFT 16:23
DX: M25.552 Pain in left hip (principal); J45.909 Unspecified asthma, uncomplicated; I25.10 Atherosclerotic heart disease of native coronary artery without angina pectoris; E78.00 Pure hypercholesterolemia, unspecified; I10 Essential (primary) hypertension; M19.90 Unspecified osteoarthritis, unspecified site; E11.9 Type 2 diabetes mellitus without complications; Z95.0 Presence of cardiac pacemaker; Z79.01 Long term (current) use of anticoagulants; Z79.84 Long term (current) use of oral hypoglycemic drugs
CPT/HCPCS: 73502; 96372; 99284; J1885; J2360

== ENCOUNTER 2017-09-16 10:24 | Emergency (ER) | payer MEDICARE, BC ==
[~2017-09-16] VITALS: Ht 147.3 cm; Wt 80.4 kg
[~2017-09-16 10:24] MED LIST changes: +ALLE4TAB10 PO; +BACL10TA PO; -CYCL10TA PO; -HYDR-3533 PO; +NAPR500T2 PO
[2017-09-16 10:30] VITALS: BP 168/81; PULSE 90; RESP 18; TEMP 97.6; O2SAT 99
[2017-09-16] MEDS ORDERED: MORPHINE SULFATE 4 MG/ML INJ IV PUSH ONE (10:45)
[2017-09-16] MEDS ORDERED: PANTOPRAZOLE SODIUM 40 MG VIAL IVP ONE (10:45)
[2017-09-16] MEDS ORDERED: SODIUM CHLORIDE 0.9% FLUSH 10 ML FLUSH IV FLUSH PRN (10:45)
[2017-09-16] MEDS ORDERED: ALUMINUM/MAGNESIUM/SIMETH 30 ML CUP PO ONE (10:45)
[2017-09-16] MEDS ORDERED: ONDANSETRON HCL 4 MG/2 ML VIAL IVP ONE (10:45)
[2017-09-16] MEDS ORDERED: LIDOCAINE VISCOUS 2% SOLN 15 ML UDC PO ONE (10:45)
--- NOTE | 2017-09-16 10:49 | PD ---
HPI Chief Complaint: GI Complaint Time Seen by Provider: 10:38 Travel History International Travel<30 days: No Contact w/Intl Traveler<30days: No Traveled to known affect area: No History of Present Illness HPI This is a 77-year-old female presents for evaluation of abdominal pain. Symptoms started at 2 AM this morning when she was watching TV. She describes it as a sharp pain in the epigastrium which is constant. She ate a banana and symmetric which seemed to help some with her pain. She endorses some nausea. Denies vomiting, chest pain or shortness of breath, diaphoresis, diarrhea or constipation, flank pain. No history of peptic ulcer disease, pancreatitis, gallstones. No history of abdominal surgery in the past. Her primary care physician is Dr. Torres. No other complaints. PFSH Past Medical History Hx Anticoagulant Therapy: Yes (XARELTO) Arthritis: Yes Asthma: Yes Blood Disorders: No Anxiety: No Depression: No Heart Rhythm Problems: Yes (BRADYCARDIA PACEMAKER BIOTRONIC) Cancer: No Cardiovascular Problems: Yes (PACEMAKER) High Cholesterol: Yes Chemotherapy: No Chest Pain: No Congestive Heart Failure: No COPD: No Cerebrovascular Accident: No Coronary Artery Disease: Yes Diabetes: Yes Patient Takes Glucophage: Yes Diminished Hearing: No Endocrine: Yes Gastrointestinal Disorders: No GERD: Yes Genitourinary: Yes Headaches: No Hypertension: Yes Immune Disorder: No Implanted Vascular Access Dvce: Yes Musculoskeletal: Yes (OSTEOARTHRITIS) Neurologic: Yes Psychiatric: No Reproductive: No Respiratory: Yes Immunizations Current: No Migraines: No Myocardial Infarction: No Seizures: Yes Sleep Apnea: No Influenza Vaccination: Yes ?: Not Menopausal: Yes : 4 Para: 4 Tubal Ligation: Yes Past Surgical History Abdominal Surgery: No AICD: Yes Body Medical Devices: PACEMAKER/DEFIB Cardiac Surgery: Yes (PACEMAKER) Section: Yes Ear Surgery: No Endocrine Surgery: No Eye Surgery: No Genitourinary Surgery: No Gynecologic Surgery: No Hysterectomy: No Neurologic Surgery: No Oral Surgery: No Pacemaker: Yes Thoracic Surgery: No Family History Family Myocardial Infarction: Yes (MOTHER) Family Hypercholesterolemia: Yes Social History Alcohol Use: No Tobacco Use: No Substance Use: No Allergies-Medications (Allergen,Severity, Reaction): Coded Allergies: codeine (Verified Adverse Reaction, Severe, Nausea, 09/15/17) Reported Meds & Prescriptions Reported Meds & Active Scripts Active Baclofen 10 Mg Tab 10 Mg PO Q8HR 7 Days Naproxen 500 Mg Tab 500 Mg PO BID 7 Days Reported Allergy Tablets (Chlorpheniramine Maleate) 4 Mg Tab 4 Mg PO Q4H PRN [place]-3 Fish Oil/Vitamin (Fish Oil-Cholecalciferol) 1,000-1,000 Mg Cap 1 Cap PO DAILY Vitamin D3 (Cholecalciferol) 2,000 Unit Cap 2,000 Units PO DAILY Calcium Ascorbate 500 Mg Tab 1,000 Mg PO DAILY Accupril (Quinapril HCl) 20 Mg Tab 20 Mg PO BID Eliquis (Apixaban) 5 Mg Tab 5 Mg PO BID Metoprolol Tartrate 50 Mg Tab 50 Mg PO BID Tramadol (Tramadol HCl) 50 Mg Tab 50 Mg PO Q4H PRN Amlodipine (Amlodipine Besylate) 5 Mg Tab 5 Mg PO BID Atorvastatin (Atorvastatin Calcium) 40 Mg Tab 40 Mg PO HS Gabapentin 300 Mg Cap 300 Mg PO TID Phenytoin Extended 100 Mg Cap 100 Mg PO TID Aspirin 81 Mg Chew 81 Mg CHEW DAILY Folic Acid 800 Mcg Tab 800 Mcg PO DAILY Magnesium Oxide 500 Mg Tab 500 Mg PO DAILY Review of Systems Except as stated in HPI: all other systems reviewed are Neg Physical Exam Narrative GENERAL: Well-developed well-nourished female in no acute distress SKIN: Warm and dry. HEAD: Atraumatic. Normocephalic. EYES: Pupils equal and round. No scleral icterus. No injection or drainage. ENT: No nasal bleeding or discharge. Mucous membranes pink and moist. NECK: Trachea midline. No JVD. CARDIOVASCULAR: Regular rate and rhythm. No murmur appreciated. RESPIRATORY: No accessory muscle use. Clear to auscultation. Breath sounds equal bilaterally. GASTROINTESTINAL: Abdomen soft, tender to palpation in the epigastrium/right upper quadrant without guarding. MUSCULOSKELETAL: No obvious deformities. No clubbing. No cyanosis. No edema. NEUROLOGICAL: Awake and alert. No obvious cranial nerve deficits. Motor grossly within normal limits. Normal speech. PSYCHIATRIC: Appropriate mood and affect; insight and judgment normal. Data Data Last Documented VS Vital Signs Date Time Temp Pulse Resp B/P (MAP) Pulse Ox O2 Delivery O2 Flow Rate FiO2 09/16/17 14:44 104 16 152/85 (107) 95 Room Air 09/16/17 10:30 97.6 Orders Orders Complete Blood Count With Diff (09/16/17 10:45) Comprehensive Metabolic Panel (09/16/17 10:45) Lipase (09/16/17 10:45) Urinalysis - C+S If Indicated (09/16/17 10:45) Ct Abd/Pel W Iv Contrast(Rout) (09/16/17 10:45) Iv Access Insert/Monitor (09/16/17 10:45) Ecg Monitoring (09/16/17 10:45) Oximetry (09/16/17 10:45) Morphine Inj (Morphine Inj) (09/16/17 10:45) Ondansetron Inj (Zofran Inj) (09/16/17 10:45) Pantoprazole Inj (Protonix Inj) (09/16/17 10:45) Sodium Chloride 0.9% Flush (Ns Flush) (09/16/17 10:45) Electrocardiogram (09/16/17 10:45) Al-Mag Hy-Si 40-40-4 Mg/Ml Liq (Mag-Al P (09/16/17 10:45) Lidocaine 2% Viscous (Xylocaine 2% Visco (09/16/17 10:45) Troponin I (09/16/17 10:45) Creatine Kinase (Cpk) (09/16/17 10:45) Iohexol 350 Inj (Omnipaque 350 Inj) (09/16/17 13:28) Urine Culture (09/16/17 13:15) Us Abdomen Gallbladder (09/16/17 ) Troponin I (09/16/17 14:30) Ed Discharge Order (09/16/17 15:17) Labs Laboratory Tests Test 09/16/17 11:15 09/16/17 12:30 09/16/17 13:15 09/16/17 14:30 White Blood Count 6.4 TH/MM3 Red Blood Count 3.53 MIL/MM3 Hemoglobin 11.5 GM/DL Hematocrit 34.8 % Mean Corpuscular Volume 98.6 FL Mean Corpuscular Hemoglobin 32.5 PG Mean Corpuscular Hemoglobin Concent 33.0 % Red Cell Distribution Width 13.0 % Platelet Count 258 TH/MM3 Mean Platelet Volume 8.8 FL Neutrophils (%) (Auto) 65.8 % Lymphocytes (%) (Auto) 15.5 % Monocytes (%) (Auto) 10.3 % Eosinophils (%) (Auto) 4.1 % Basophils (%) (Auto) 4.3 % Neutrophils # (Auto) 4.1 TH/MM3 Lymphocytes # (Auto) 1.0 TH/MM3 Monocytes # (Auto) 0.7 TH/MM3 Eosinophils # (Auto) 0.3 TH/MM3 Basophils # (Auto) 0.3 TH/MM3 CBC Comment DIFF FINAL Differential Comment Blood Urea Nitrogen 23 MG/DL Creatinine 1.20 MG/DL Random Glucose 115 MG/DL Total Protein 7.0 GM/DL Albumin 3.3 GM/DL Calcium Level 8.9 MG/DL Alkaline Phosphatase 193 U/L Aspartate Amino Transf (AST/SGOT) 41 U/L Alanine Aminotransferase (ALT/SGPT) 43 U/L Total Bilirubin 0.4 MG/DL Sodium Level 138 MEQ/L Potassium Level MEQ/L Chloride Level 103 MEQ/L Carbon Dioxide Level 26.2 MEQ/L Anion Gap 9 MEQ/L Estimat Glomerular Filtration Rate 44 ML/MIN Total Creatine Kinase 54 U/L Troponin I LESS THAN 0.02 NG/ML LESS THAN 0.02 NG/ML Lipase 94 U/L Urine Collection Type CLEAN CATCH Urine Color YELLOW Urine Turbidity CLEAR Urine pH 8.0 Urine Specific [place] 1.010 Urine Protein TRACE mg/dL Urine Glucose (UA) NEG mg/dL Urine Ketones NEG mg/dL Urine Occult Blood NEG Urine Nitrite NEG Urine Bilirubin NEG Urine Leukocyte Esterase LARGE Urine RBC 0-3 /hpf Urine WBC 9-14 /hpf Microscopic Urinalysis Comment CULTURE INDICATED MDM Medical Decision Making Medical Screen Exam Complete: Yes Emergency Medical Condition: Yes Medical Record Reviewed: Yes Interpretation(s) CONCLUSION: 1. There is a moderate amount of stool within the colon. No findings to indicate bowel obstruction are seen. 2. Degenerative changes within the spine. 3. No free fluid or free air identified. Differential Diagnosis Peptic ulcer disease, biliary colic, cholecystitis, pancreatitis, colitis, perforated viscus, mesenteric ischemia Narrative Course The patient was placed on a monitor and pulse oximeter. 12 EKG obtained. Plans are basic lab work, CT abdomen and pelvis. She will be given morphine, Zofran, Protonix, GI cocktail. The patient's laboratory imaging studies are reviewed. CT reveals moderate amount of stool within the colon with no acute findings. GFR is 44 which is consistent with her baseline. Initial set of cardiac enzymes were negative. A repeat troponin was ordered and this was negative. Urinalysis does reveal large leukocytes. The patient reports that 2 weeks ago she was treated with an unknown antibiotic for UTI. The urinalysis is reflexively been sent for urine culture. Upon reexamination the patient reports that her symptoms have resolved. The patient will be discharged with a short course of Macrobid pending urine culture results. The patient is encouraged to not take the Naprosyn that was prescribed yesterday as her symptoms today may be related to gastritis. Diagnosis Primary Impression: Abdominal pain Qualified Codes: R10.13 - Epigastric pain Additional Impression: Pyuria Additional Instructions: Medications prescribed. Stay well hydrated and well-nourished, advance diet as tolerated, follow-up with primary care physician. Return for any emergent medical conditions. Med/Other Pt SpecificInfo: Prescription(s) given Scripts Nitrofurantoin Monohydrate Macrocrystals (Macrobid) 100 Mg Capsule 100 MG PO BID for Infection for 7 Days, #14 CAP 0 Refills Prov: Sandi Alvares MD 09/16/17 Disposition: 01 DISCHARGE HOME Condition: Stable Damian Ureña Sep 16, 2017 10:49
[2017-09-16 11:21] LABS: AUTOMATED NEUTROPHIL # 4.1 TH/MM3 (1.8-7.7); BASOPHIL # 0.3 TH/MM3 (0-0.2); BASOPHIL % 4.3 % (0.0-2.0); EOSINOPHIL # 0.3 TH/MM3 (0-0.4); EOSINOPHIL % 4.1 % (0.0-4.0); HEMATOCRIT 34.8 % (35.0-46.0); HEMO FLAGS DIFF FINAL; LYMPH % 15.5 % (9.0-44.0); MEAN CELL VOLUME 98.6 FL (80.0-100.0); MEAN CORPUSCULAR HEMOGLOBIN 32.5 PG (27.0-34.0); MONO % 10.3 % (0.0-8.0); NEUT % 65.8 % (16.0-70.0); PLATELET COUNT 258 TH/MM3 (150-450); RED BLOOD COUNT 3.53 MIL/MM3 (4.00-5.30); WHITE BLOOD COUNT 6.4 TH/MM3 (4.0-11.0)
[2017-09-16 12:00] VITALS: BP 165/80; PULSE 79; RESP 18; O2SAT 95
[2017-09-16 12:49] LABS: BICARBONATE 26.2 MEQ/L (21.0-32.0); BLOOD UREA NITROGEN 23 MG/DL (7-18)
[2017-09-16 12:52] LABS: ALT (GPT) 43 U/L (10-53); AST (GOT) 41 U/L (15-37); GLOMERULAR FILTRATION RATE 44 ML/MIN (>89)
[2017-09-16 12:54] LABS: TOTAL BILIRUBIN ADULT 0.4 MG/DL (0.2-1.0)
[2017-09-16 12:55] LABS: ALKALINE PHOSPHATASE 193 U/L (45-117)
[2017-09-16 13:06] LABS: CREATINE KINASE 54 U/L (26-192)
[2017-09-16 13:15] LABS: SODIUM (NA) 138 MEQ/L (136-145)
[2017-09-16 13:16] VITALS: O2SAT 97
[2017-09-16 13:16] LABS: ANION GAP 9 MEQ/L (5-15); CHLORIDE 103 MEQ/L (98-107)
[2017-09-16 13:22] LABS: BLOOD, URINE NEG (NEG); GLUCOSE,URINE NEG (NEG); KETONE, URINE NEG (NEG); NITRITE,URINE NEG (NEG)
[2017-09-16 13:23] LABS: METHOD OF COLLECTION CLEAN CATCH; URINE COLOR YELLOW (YELLW/STRAW)
[2017-09-16] MEDS ORDERED: IOHEXOL 350 MG/ML 10 ML VIAL (for RAD DIAG) IVCONTRAST ONE (13:28)
[2017-09-16 13:38] LABS: COMMENT (UR) CULTURE INDICATED; CULTURE IF INDICATED CULTURE INDICATED; RBC, URINE 0-3 /hpf (0-3)
[2017-09-16 13:42] VITALS: BP 164/84; PULSE 84; RESP 16; O2SAT 95
--- NOTE | 2017-09-16 13:56 | EKG ---
Date Performed: 09/16/2017 Time Performed: 10:59:33 PTAGE: 77 years EKG: ELECTRONIC ATRIAL PACEMAKER ELECTRONIC VENTRICULAR PACEMAKER ABNORMAL RHYTHM ECG PREVIOUS TRACING : 11/24/2016 14.17 Compared to prior tracing no significant change DOCTOR: Gaetano Leong Interpretating Date/Time 09/16/2017 13:55:52
--- NOTE | 2017-09-16 13:56 | RADRPT ---
EXAM DATE/TIME: 09/16/2017 13:22 [facility] COMPARISON: CT CERVICAL SPINE W/O CONTRAST, June 27, 2017, 7:25. INDICATIONS : Epigastric pain. IV CONTRAST: 75 cc Omnipaque 350 (iohexol) IV ORAL CONTRAST: No oral contrast ingested. RADIATION DOSE: 19.00 CTDIvol (mGy) MEDICAL HISTORY : Cardiovascular disease. Gastroesophageal reflux disease. Hypertension.Diabetes. Anticoagulant therapy . SURGICAL HISTORY : Pacemaker. Tubal ligation. ENCOUNTER: Initial ACUITY: 2 days PAIN SCALE: 0/10 LOCATION: upper quadrant TECHNIQUE: Volumetric scanning of the abdomen and pelvis was performed. Using automated exposure control and ad justment of the mA and/or kV according to patient size, radiation dose was kept as low as reasonably achievable to obtain optimal diagnostic quality images. DICOM format image data is available electro nically for review and comparison. FINDINGS: The limited portion of the lung base visualized is clear. There is a sizable hiatal hernia. The appearance of the liver, spleen, pancreas and adrenal glands is within normal limits. There is no retroperitoneal adenopathy. There is mild atherosclerotic plaquing in the abdominal aorta . The aorta is normal in caliber. The visualized loops of small and large bowel demonstrate a moderate amount of stool within the colon suggesting possible constipation. There are no findings to indicate bowel obstruction. The abdominal wall is intact. There is no free fluid within the pelvis. No iliac or inguinal adenopathy is seen. The reproductive o rgans are intact. Visualized osseous structures demonstrate degenerative changes but are otherwise intact. CONCLUSION: 1. There is a moderate amount of stool within the colon. No findings to indicate bowel obstruction ar e seen. 2. Degenerative changes within the spine. 3. No free fluid or free air identified. Abdon Child MD on September 16, 2017 at 13:49 Board Certified Radiologist. This report was verified electronically.
[2017-09-16 14:44] VITALS: BP 152/85; PULSE 104; RESP 16; O2SAT 95
--- NOTE | 2017-09-16 15:10 | RADRPT ---
EXAM DATE/TIME: 09/16/2017 14:17 This report includes an Addendum and supersedes previous reports for this exam. [facility] COMPARISON: CT ABDOMEN & PELVIS W CONTRAST, November 24, 2016, 16:58. US KIDNEY/RENAL/BLADDER, December 21, 2015, 14:20. INDICATIONS : Right upper quadrant pain. MEDICAL HISTORY : Hypercholesterolemia. Seizures. CAD. Anticogulant therapy. Hypertension. Asthma. GERD. Arthritis. UTI. Diabetes. SURGICAL HISTORY : section. Pacemaker. Tubal ligation. ENCOUNTER: Initial ACUITY: 1 day PAIN SCORE: 0/10 LOCATION: Right upper quadrant MEASUREMENTS: LIVER: 14.7 cm length COMMON DUCT: 7 mm RIGHT KIDNEY: 10.3 x 5.7 x 5.9 cm FINDINGS: LIVER: Normal echotexture without focal lesion or ductal dilatation. COMMON DUCT: No intraluminal mass or stone visualized. GALLBLADDER: Contains no stones, demonstrates no wall thickening or pericholecystic fluid. PANCREAS: The examination demonstrates a possible mass measuring 1.0 x 0.7 cm at the junction of the body and t he tail of the pancreas. This is not evident on patient's previous CT dated 11/24/16. Repeat CT imagin g with pancreatic protocol would be of benefit for further assessment. RIGHT KIDNEY: No evidence of hydronephrosis, stone, or mass. CONCLUSION: 1. No gallstones or gallbladder wall thickening identified. The common duct is within normal size sorensen its. 2. Questionable 1.0 x 0.7 cm mass in the pancreatic head CT imaging with pancreatic protocol for furt her assessment would be of benefit. Abdon Child MD on September 16, 2017 at 15:04 Board Certified Radiologist. This report was verified electronically. ADDENDUM: This patient has a CT scan dated 09/16/17 as well. There is no mass within the pancreas. Abdon Child MD on September 16, 2017 at 15:15 Board Certified Radiologist. This report was verified electronically.
[2017-09-16] MEDS ORDERED: MACR100C2 PO (15:18)
[2017-09-16 15:54] VITALS: BP 151/75
== END 2017-09-16 15:56 | disposition home or self-care (01) ==
LOC: PHED 10:24
DX: R10.13 Epigastric pain (principal); N39.0 Urinary tract infection, site not specified; B96.89 Other specified bacterial agents as the cause of diseases classified elsewhere
CPT/HCPCS: 74177; 76705; 80053; 81001; 82550; 83690; 84484; 85025; 87086; 93005; 96374; 96375; 99285; C9113; J2270; J2405; Q9967

== ENCOUNTER 2018-03-16 08:08 | Emergency (ER) | payer OTHER, MEDICARE, BC ==
[~2018-03-16] VITALS: Ht 147.3 cm; Wt 79.0 kg
[~2018-03-16 08:08] MED LIST changes: +MACR100C2 PO
[2018-03-16 08:09] VITALS: BP 164/75; PULSE 86; RESP 18; TEMP 99.3
[2018-03-16] MEDS ORDERED: IOHEXOL 350 MG/ML 10 ML VIAL (for RAD DIAG) IVCONTRAST ONE (08:09)
[2018-03-16] MEDS ORDERED: ACETAMINOPHEN 500 MG CPLT PO ONE (08:30)
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
[2018-03-16 09:07] LABS: AUTOMATED NEUTROPHIL # 4.6 TH/MM3 (1.8-7.7); BASOPHIL % 0.6 % (0.0-2.0); EOSINOPHIL # 0.1 TH/MM3 (0-0.4); EOSINOPHIL % 2.3 % (0.0-4.0); HEMATOCRIT 33.2 % (35.0-46.0); HEMOGLOBIN 11.4 GM/DL (11.6-15.3); LYMPH % 11.4 % (9.0-44.0); LYMPHOCYTE # 0.7 TH/MM3 (1.0-4.8); MEAN CELL VOLUME 101.1 FL (80.0-100.0); MEAN CORPUSCULAR HEMOGLOBIN 34.8 PG (27.0-34.0); MEAN CORPUSCULAR HGB CONC 34.4 % (32.0-36.0); MEAN PLATELET VOLUME 8.3 FL (7.0-11.0); MONO % 11.8 % (0.0-8.0); MONOCYTE # 0.7 TH/MM3 (0-0.9); NEUT % 73.9 % (16.0-70.0); PLATELET COUNT 203 TH/MM3 (150-450); RED BLOOD COUNT 3.29 MIL/MM3 (4.00-5.30); RED CELL DISTRIBUTION WIDTH 13.6 % (11.6-17.2); WHITE BLOOD COUNT 6.3 TH/MM3 (4.0-11.0)
[2018-03-16 09:17] LABS: ALBUMIN 3.3 GM/DL (3.4-5.0); ALT (GPT) 52 U/L (10-53); AST (GOT) 57 U/L (15-37); BICARBONATE 25.4 MEQ/L (21.0-32.0); BLOOD UREA NITROGEN 16 MG/DL (7-18); CALCIUM 9.3 MG/DL (8.5-10.1); CHLORIDE 101 MEQ/L (98-107); CREATININE 1.21 MG/DL (0.50-1.00); GLOMERULAR FILTRATION RATE 43 ML/MIN (>89); GLUCOSE,RANDOM 136 MG/DL (74-106); SODIUM (NA) 137 MEQ/L (136-145)
[2018-03-16 09:20] LABS: ALKALINE PHOSPHATASE 194 U/L (45-117); TOTAL BILIRUBIN ADULT 0.6 MG/DL (0.2-1.0)
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
[2018-03-16 10:48] VITALS: BP 165/87; PULSE 97; RESP 19; TEMP 98.5; O2SAT 92
[2018-03-16] MEDS ORDERED: AZIT250T3 PO (10:56)
[2018-03-20] MEDS ORDERED: QUIN5TAB6 PO (15:44)
[2018-03-20] MEDS ORDERED: APIX5TAB PO (15:44)
[2018-03-20] MEDS ORDERED: PHEN100C PO (15:44)
[2018-03-20] MEDS ORDERED: GABA300C5 PO (15:44)
[2018-03-20] MEDS ORDERED: METO50TA PO (15:44)
[2018-03-20] MEDS ORDERED: PRED50 PO (18:30)
[2018-03-20] MEDS ORDERED: ALBU6.7H INH (18:30)
[2018-03-20] MEDS ORDERED: LEVO500T8 PO (18:30)
== END 2018-03-16 11:39 | disposition home or self-care (01) ==
LOC: NEPC 08:08
DX: S06.0X1A Concussion with loss of consciousness of 30 minutes or less, initial encounter (principal); S13.4XXA Sprain of ligaments of cervical spine, initial encounter; E78.00 Pure hypercholesterolemia, unspecified; I10 Essential (primary) hypertension; V43.52XA Car driver injured in collision with other type car in traffic accident, initial encounter
CPT/HCPCS: 70450; 71045; 72125; 74177; 80053; 85025; 99285; Q9967

== ENCOUNTER 2018-03-20 14:41 | Emergency (ER) | END 2018-03-20 18:40 | disposition home or self-care (01) | DX: J40 Bronchitis, not specified as acute or chronic (principal) ==